=== PATIENT | male | born 1960 | race African-American/Black ===

== ENCOUNTER → 2016-10-27 | Outpatient (CLI) | payer BC, OTHER ==
--- NOTE | 2016-10-27 15:06 | NM ---
EXAMINATION TYPE: NM hepatobiliary w EF DATE OF EXAM: 10/27/2016 COMPARISON: NONE HISTORY: Generalized abdominal pain TECHNIQUE: After the intravenous administration of 5.1 mCi Tc 99m Mebrofenin hepatobiliary scintigrap hy is performed. Immediate images post injection. FINDINGS: There is satisfactory initial accumulation of tracer by the liver. The gallbladder is visualized wit hin 26 minutes. The small bowel activity is noted within 12 minutes. At one hour 8 ounces of oral e nsure plus is given to mimic CCK and gallbladder ejection fraction is calculated at 74 %, in the norm al range. Therefore there is no scintigraphic evidence of cystic or common bile duct obstruction to suggest acute cholecystitis or gallbladder dyskinesia. IMPRESSION: No evidence of acute cholecystitis, chronic cholecystitis, or biliary dyskinesia.
== END | disposition home or self-care (01) ==
LOC: RADNMMAIN 12:40
PROVIDERS: ATTEND Surgery
DX: R10.84 Generalized abdominal pain (principal); R13.10 Dysphagia, unspecified
CPT/HCPCS: 78226; A9537

== ENCOUNTER 2016-11-04 08:58 | Day surgery (SDC) | payer BC ==
[~2016-11-04 08:58] MED LIST: LACTATED RINGERS 1,000 ML IV SCH; LIDOCAINE 1% 20 ML VIAL (10MG/ML) FOR IV START INTRADERMA PRN
[2016-11-04 09:12] VITALS: TEMP 97.1
[2016-11-04] MEDS ORDERED: LIDOCAINE 1% INJ 10MG/ML (20 ML MDV) ONE (10:12)
[2016-11-04] MEDS ORDERED: PROPOFOL 10 MG/ML 20 ML VIAL IV ONE (10:12)
--- NOTE | 2016-11-04 10:17 | P.GSHP ---
History of Present Illness H&P Date: 11/04/16 Chief Complaint: Dysphagia, epigastric pain This a 56-year-old male who's has complaints of dysphagia and some mild epigastric pain. He presents today for EGD. His recent esophagram shows no evidence of GE junction obstruction or recurrent hiatal hernia. Past Medical History Past Medical History: No Reported History Additional Past Medical History / Comment(s): CURRENT: NO APPETITE, CAN ONLY EAT SMALL PORTIONS, SOME UPPER ABD PAIN History of Any Multi-Drug Resistant Organisms: None Reported Past Surgical History: Hernia Repair, Orthopedic Surgery Additional Past Surgical History / Comment(s): HIATAL HERNIA REPAIR,RIGHT ROTATOR CUFF REPAIR, URETER SURGERY, "stomach wrap" Past Anesthesia/Blood Transfusion Reactions: No Reported Reaction Past Psychological History: No Psychological Hx Reported Smoking Status: Light tobacco smoker Past Alcohol Use History: Occasional Additional Past Alcohol Use History / Comment(s): HAS SMOKED AN OCCASIONAL CIGAR FOR ABOUT 4 YRS-QUIT 2014 Past Drug Use History: None Reported - Past Family History Sister(s) Family Medical History: Cancer Additional Family Medical History / Comment(s): breast Brother(s) Family Medical History: Cancer Additional Family Medical History / Comment(s): throat cancer Mother Family Medical History: Cancer, Hypertension Additional Family Medical History / Comment(s): breast Medications and Allergies Home Medications Medication Instructions Recorded Confirmed Type No Known Home Medications [No 11/20/14 11/04/16 History Known Home Medications] Allergies Allergy/AdvReac Type Severity Reaction Status Date / Time No Known Allergies Allergy Verified 11/04/16 09:12 Surgical - Exam Vital Signs Temp Pulse Resp BP Pulse Ox 97.1 F L 46 L 16 140/92 99 11/04/16 09:09 11/04/16 09:09 11/04/16 09:09 11/04/16 09:09 11/04/16 09:09 - General well developed, no distress - Eyes PERRL - ENT normal pinna - Neck no masses - Respiratory normal expansion - Cardiovascular Rhythm: regular - Abdomen Abdomen: soft, non tender Assessment and Plan Plan: Dysphagia. We'll perform EGD.
--- NOTE | 2016-11-04 10:27 | P.OP ---
Date of Procedure: 11/04/16 Preoperative Diagnosis: Dysphagia Postoperative Diagnosis: Mild antral gastritis Procedure(s) Performed: EGD with balloon dilatation of GE junction Anesthesia: MAC Surgeon: Sanjay Jimenes Pathology: other (Antrum) Condition: stable Disposition: PACU Description of Procedure: The patient's placed on the endoscopy table lateral position. He received IV sedation. The gastric was placed oropharynx passed into the esophagus and stomach. Scope was then placed through the pylorus. The first second portion of the duodenum appeared normal. Scope was then brought back the antrum and this appeared mildly inflamed. A biopsies performed. The scope was then retroflexed and remainder some appeared normal. There is no evidence of a recurrent hiatal hernia. The GE junction appeared patent. Due to the patient' s symptoms dysphagia a 20 mm balloon was placed across the GE junction and held in position for 3 minutes. There isany injury to the stomach or esophagus. The scope was withdrawn. The distal esophagus appeared normal. Scope was withdrawn for patient.
[2016-11-04 11:03] VITALS: BP 151/88; PULSE 44; RESP 18
== END 2016-11-04 11:32 | disposition home or self-care (01) ==
LOC: ORWHC2ENDO 08:58
PROVIDERS: ATTEND Surgery
DX: R13.10 Dysphagia, unspecified (principal); K29.50 Unspecified chronic gastritis without bleeding; B96.81 Helicobacter pylori [H. pylori] as the cause of diseases classified elsewhere; Z87.891 Personal history of nicotine dependence; Z80.0 Family history of malignant neoplasm of digestive organs
CPT/HCPCS: 88305; 88342; 43239; 43249; J2001; J2704

== ENCOUNTER 2017-04-04 08:19 | Day surgery (SDC) | payer BC, OTHER ==
[2017-03-30 14:38] VITALS: BMI 22.5
[~2017-04-04 08:19] MED LIST changes: -LIDOCAINE 1% 20 ML VIAL (10MG/ML) FOR IV START INTRADERMA PRN
[2017-04-04 08:42] VITALS: RESP 16; TEMP 98
[2017-04-04] MEDS ORDERED: LIDOCAINE 1% 20 ML VIAL (10MG/ML) FOR IV START INTRADERMA ONE (08:51)
[2017-04-04] MEDS ORDERED: GLYCOPYRROLATE 0.2 MG/ML 2 ML VIAL ONE (09:06)
[2017-04-04] MEDS ORDERED: MIDAZOLAM 2 MG/2 ML VIAL ONE (09:06)
[2017-04-04] MEDS ORDERED: fentaNYL (PF) 50 MCG/ML 2 ML AMP ONE (09:06)
[2017-04-04] MEDS ORDERED: LIDOCAINE 1% INJ 10MG/ML (20 ML MDV) ONE (09:06)
[2017-04-04] MEDS ORDERED: PROPOFOL 10 MG/ML 20 ML VIAL IV ONE (09:06)
--- NOTE | 2017-04-04 09:16 | P.GSHP ---
History of Present Illness H&P Date: 04/04/17 Chief Complaint: Epigastric and left lower quadrant pain, colitis This a 57-year-old male who had a recent hospital admission for colitis and epigastric pain. He presents today for EGD for evaluation possible gastritis and colitis. Past Medical History Past Medical History: GERD/Reflux Additional Past Medical History / Comment(s): hx hiatal hernia, change in bowel movements, recent colitis History of Any Multi-Drug Resistant Organisms: None Reported Past Surgical History: Hernia Repair, Orthopedic Surgery Additional Past Surgical History / Comment(s): HIATAL HERNIA REPAIR, RIGHT ROTATOR CUFF REPAIR, URETER SURGERY, Past Anesthesia/Blood Transfusion Reactions: No Reported Reaction Past Psychological History: No Psychological Hx Reported Smoking Status: Light tobacco smoker Past Alcohol Use History: Occasional Additional Past Alcohol Use History / Comment(s): smokes OCCASIONAL CIGARS Past Drug Use History: None Reported - Past Family History Sister(s) Family Medical History: Cancer Additional Family Medical History / Comment(s): breast Brother(s) Family Medical History: Cancer Additional Family Medical History / Comment(s): throat cancer Mother Family Medical History: Cancer, Hypertension Additional Family Medical History / Comment(s): breast Medications and Allergies Home Medications Medication Instructions Recorded Confirmed Type No Known Home Medications [No 11/20/14 04/04/17 History Known Home Medications] Allergies Allergy/AdvReac Type Severity Reaction Status Date / Time No Known Allergies Allergy Verified 04/04/17 08:41 Surgical - Exam Vital Signs Temp Pulse Resp BP Pulse Ox 98.0 F 54 L 16 155/80 100 04/04/17 08:37 04/04/17 08:37 04/04/17 08:37 04/04/17 08:37 04/04/17 08:37 - General well developed, no distress - Eyes PERRL - ENT normal pinna - Neck no masses - Respiratory normal expansion - Cardiovascular Rhythm: regular - Abdomen Abdomen: soft, non tender Assessment and Plan Assessment: History of colitis and gastritis. We'll perform EGD and colonoscopy.
--- NOTE | 2017-04-04 09:41 | P.OP ---
Date of Procedure: 04/04/17 Preoperative Diagnosis: Gastritis Colitis Constipation Postoperative Diagnosis: Antral gastritis Normal colon biopsy pending Procedure(s) Performed: EGD Colonoscopy Anesthesia: MAC Surgeon: Sanjay Jimenes Pathology: other (Antrum, sigmoid colon) Condition: stable Disposition: PACU Description of Procedure: The patient's placed on the endoscopy table in the lateral position. He received IV sedation. The gastroscope placed oropharynx passed in the esophagus and stomach. Scope was then placed through the pylorus. The first and second portion of the duodenum appeared normal. Scope was then brought back the antrum this appeared mildly inflamed and a biopsy was performed. The scope was unretroflexed and remainder some appeared normal. The patient a previous fundal plication. The GE junction was at 47 is. The distal esophagus appeared normal. The proximal esophagus appeared normal. Scope was withdrawn for patient. Next digital rectal exam was performed which revealed a few external hemorrhoids. The prostate was symmetric without nodules. The flexible colonoscope was then placed patient anus passed throughout the entire colon. The ileocecal valve was visualized. The cecum, ascending and transverse colon appeared normal. The descending; appeared normal. Due to the patient's use history of colitis. A random biopsy of the sigmoid colon was performed. This appeared normal. Scope summer back the rectum and this appeared normal. Scope was withdrawn for patient.
[2017-04-04 10:04] VITALS: BP 134/88; PULSE 66
== END 2017-04-04 10:43 | disposition home or self-care (01) ==
LOC: ORWHC2ENDO 08:19
PROVIDERS: ATTEND Surgery
DX: K29.50 Unspecified chronic gastritis without bleeding (principal); K21.9 Gastro-esophageal reflux disease without esophagitis; K44.9 Diaphragmatic hernia without obstruction or gangrene; K64.4 Residual hemorrhoidal skin tags; K52.9 Noninfective gastroenteritis and colitis, unspecified; Z80.0 Family history of malignant neoplasm of digestive organs; F17.290 Nicotine dependence, other tobacco product, uncomplicated
CPT/HCPCS: 88305; 45380; 43239; J2250; J2001; J3010; J2704

== ENCOUNTER → 2018-12-21 | Outpatient (CLI) | payer BC ==
--- NOTE | 2018-12-21 12:27 | NM ---
EXAMINATION TYPE: NM bone 3 phase DATE OF EXAM: 12/21/2018 COMPARISON: NONE HISTORY: Right lower extremity cellulitis. Injury to the second and third toe of the right foot appro ximately 3 weeks ago Triple phase bone scintigraphy was performed following the injection of 23.2 mCi Tc 99m MDP. Immedia te images and 4 hours post injection images acquired. FINDINGS: There is abnormal flow and blood pool to the third right digit focally however this does no t appear to persist on delayed images. Mild symmetric uptake in the mid feet bilaterally, likely dege nerative. IMPRESSION: Findings of cellulitis seen focally over the third right digit. No scintigraphic evidence of osteomyelitis with no persistent uptake on delayed images..
== END | disposition home or self-care (01) ==
LOC: RADNMMAIN 07:10
PROVIDERS: ATTEND Family Medicine
DX: L03.115 Cellulitis of right lower limb (principal)
CPT/HCPCS: 78315; A9503

== ENCOUNTER → 2019-07-16 | Outpatient (CLI) | payer BC ==
--- NOTE | 2019-07-16 14:04 | CT ---
EXAMINATION TYPE: CT brain w con DATE OF EXAM: 07/16/2019 COMPARISON: None HISTORY: Vision changes CT DLP: 1109 mGycm Automated exposure control for dose reduction was used. CONTRAST: CT scan of the head is performed with IV Contrast, patient injected with 100 ml mL of Isovue 300. FINDINGS: There is no abnormal enhancing mass or midline shift identified. The ventricles and sulci are within normal limits in size. The globes are intact and the visualized sinuses are clear. No enhancing mas ses. Several densities are seen in the subcutaneous tissues which could represent chronic foreign bod y. Correlate clinically. There is a punctate area of enhancement near the medulla. Measures 2 mm. IMPRESSION: Punctate 2 mm area of enhancement near the medulla. MRI is recommended to determine if this is a vasc ular structure or tiny enhancing lesion.
== END | disposition home or self-care (01) ==
LOC: RADCTMAIN 13:15
PROVIDERS: ATTEND Family Medicine
DX: H53.9 Unspecified visual disturbance (principal); R51 Headache
CPT/HCPCS: 70460; Q9967

== ENCOUNTER → 2019-08-07 | Outpatient (CLI) | payer BC ==
--- NOTE | 2019-08-08 03:39 | MR ---
EXAMINATION TYPE: MR brain wo/w con DATE OF EXAM: 08/07/2019 COMPARISON: CT scan 07/26/2019. HISTORY: Visual Changes, CT showed abnormality. CONTRAST: Standard multiplanar, multisequence MRI departmental protocol utilizing 7 mL intravenous Gadavist george olinium contrast. Ventricles have normal size. There is no mass effect nor midline shift. There is no sign of intracran ial hemorrhage. Corpus callosum appears normal. Brainstem is intact. Sella turcica appears normal. Th ere is no evidence of cerebral edema. Diffusion images show no evidence of cortical infarct. There is normal contrast enhancement of the vertebrobasilar artery system and the anterior middle and posterior cerebral arteries. I see no pathologic enhancement. There is normal enhancement of the maury ous sinuses. Optic chiasm is normal. Pituitary gland appears normal. There is no evidence of an orbital mass. There is no pathologic orbital enhancement. The globes are s ymmetric. IMPRESSION: Negative MR scan of the brain. No pathologic enhancement. I do not see a cause for vision changes. No adverse change compared to recent CT scan.
== END | disposition home or self-care (01) ==
LOC: RADMRIMAIN 15:50
PROVIDERS: ATTEND Family Medicine
DX: R51 Headache (principal); H53.9 Unspecified visual disturbance
CPT/HCPCS: 70553; A9585

== ENCOUNTER 2019-10-11 11:10 | Day surgery (SDC) | payer BC ==
[2019-10-09 15:14] VITALS: BMI 22.0
[~2019-10-11 11:10] MED LIST changes: +LIDOCAINE 1% (10MG/ML) FOR IV START INTRADERMA PRN
[2019-10-11 11:26] VITALS: RESP 16; TEMP 98.2
[2019-10-11] MEDS ORDERED: PROPOFOL 10 MG/ML 20 ML VIAL IV ONE (11:48)
[2019-10-11] MEDS ORDERED: GLYCOPYRROLATE 0.2 MG/ML 2 ML VIAL ONE (11:48)
[2019-10-11] MEDS ORDERED: MIDAZOLAM 2 MG/2 ML VIAL ONE (11:48)
[2019-10-11] MEDS ORDERED: LIDOCAINE 1% INJ 10MG/ML (20 ML MDV) ONE (11:48)
--- NOTE | 2019-10-11 11:50 | P.GSHP ---
History of Present Illness H&P Date: 10/11/19 Chief Complaint: Peptic ulcer disease, rectal bleeding This a 59-year-old male presents today for EGD and colonoscopy. Patient has had complaints of rectal bleeding. History of peptic ulcer disease. Past Medical History Past Medical History: GERD/Reflux Additional Past Medical History / Comment(s): change in bowel movements, recent colitis, BLOOD IN STOOL History of Any Multi-Drug Resistant Organisms: None Reported Past Surgical History: Bariatric Surgery, Hernia Repair, Orthopedic Surgery Additional Past Surgical History / Comment(s): HIATAL HERNIA REPAIR, RIGHT ROTATOR CUFF REPAIR, URETER SURGERY, LAP BAND- Past Anesthesia/Blood Transfusion Reactions: No Reported Reaction Smoking Status: Current some day smoker - Past Family History Sister(s) Family Medical History: Cancer Additional Family Medical History / Comment(s): breast Brother(s) Family Medical History: Cancer Additional Family Medical History / Comment(s): throat cancer Mother Family Medical History: Cancer, Hypertension Additional Family Medical History / Comment(s): breast Medications and Allergies Home Medications Medication Instructions Recorded Confirmed Type Allergy Relief 1 tab PO DAILY 10/11/19 10/11/19 History Centrum Chewable Vitamins 2 tab PO DAILY 10/11/19 10/11/19 History Cyclobenzaprine [Flexeril] 1 tab PO HS 10/11/19 10/11/19 History Escitalopram [Lexapro] 10 mg PO DAILY 10/11/19 10/11/19 History Famotidine [Pepcid] 20 mg PO DAILY 10/11/19 10/11/19 History Allergies Allergy/AdvReac Type Severity Reaction Status Date / Time No Known Allergies Allergy Verified 10/11/19 11:27 Surgical - Exam Vital Signs Temp Pulse Resp BP Pulse Ox 98.2 F 50 L 16 161/95 100 10/11/19 11:21 10/11/19 11:21 10/11/19 11:21 10/11/19 11:21 10/11/19 11:21 - General well developed, well nourished, no distress - Eyes PERRL - ENT normal pinna - Neck no masses - Respiratory normal expansion - Cardiovascular Rhythm: regular - Abdomen Abdomen: soft, non tender Assessment and Plan Assessment: Rectal bleeding, peptic ulcer disease. We'll perform EGD colonoscopy
--- NOTE | 2019-10-11 12:13 | P.OP ---
Date of Procedure: 10/11/19 Preoperative Diagnosis: Dyspepsia Rectal bleeding Postoperative Diagnosis: Internal hemorrhoids Antral gastritis Procedure(s) Performed: EGD Colonoscopy Anesthesia: MAC Surgeon: Sanjay Jimenes Pathology: other (Antrum) Condition: stable Disposition: PACU Description of Procedure: The patient's placed on the endoscopy table in the lateral position. She received IV sedation. The gastroscope placed oropharynx passed in the esophagus into the stomach. Scope then placed through the pylorus. First and second portion duodenum appeared normal. Scope was then brought back the antrum and this appeared mildly inflamed. A biopsies performed. Scope was unretroflexed and the remainder of the stomach appeared normal. The patient had a previous Timmy fundal plication. The wrap appeared to be in appropriate position. The GE junction was at 40 cm. The distal esophagus appeared normal. The proximal esophagus. Normal. Scope was withdrawn for patient. Next digital rectal exam was performed in a few internal hemorrhoids were noted. The prostate was symmetric without nodules. The possible colonoscope was then placed patient anus and passed throughout the entire colon. The ileocecal valve was visualized. The cecum, ascending and transverse colon appeared normal. The descending and sigmoid colon appeared normal. Scope was then brought back the rectum and this appeared normal. Scope was then withdrawn from patient. Internal hemorrhoids are noted. There is no evidence of any GI bleed. Assume that any rectal bleeding is due to internal hemorrhoids
[2019-10-11 12:33] VITALS: BP 137/98; PULSE 54
== END 2019-10-11 12:56 | disposition home or self-care (01) ==
LOC: ORWHC2ENDO 11:10
PROVIDERS: ATTEND Surgery
DX: K64.8 Other hemorrhoids (principal); K29.51 Unspecified chronic gastritis with bleeding; K31.89 Other diseases of stomach and duodenum; K21.9 Gastro-esophageal reflux disease without esophagitis; F17.200 Nicotine dependence, unspecified, uncomplicated; Z87.11 Personal history of peptic ulcer disease; Z87.19 Personal history of other diseases of the digestive system; Z98.84 Bariatric surgery status; Z98.890 Other specified postprocedural states; Z87.39 Personal history of other diseases of the musculoskeletal system and connective tissue; Z79.899 Other long term (current) drug therapy; Z80.3 Family history of malignant neoplasm of breast; Z80.8 Family history of malignant neoplasm of other organs or systems; Z82.49 Family history of ischemic heart disease and other diseases of the circulatory system
CPT/HCPCS: 88305; 45378; 43239; J2250; J2001; J2704

== ENCOUNTER 2021-09-11 16:45 | Emergency (ER) | payer BC ==
[2021-09-11] MEDS ORDERED: SODIUM CHLORIDE 0.9% 1,000 ML IV STA (17:27)
[2021-09-11 17:49] VITALS: PULSE 56
[2021-09-11] MEDS ORDERED: ACETAMINOPHEN TAB 500 MG TAB PO STA (17:49)
[2021-09-11 18:10] LABS: Basophils % (A) 1 %; Eosinophils # (A) 0.2 k/uL (0-0.7); Eosinophils % (A) 3 %; HCT 38.4 % (39.0-53.0); HGB 12.6 gm/dL (13.0-17.5); Lymphocytes % (A) 16 %; MCH 32.8 pg (25.0-35.0); MCHC 32.8 g/dL (31.0-37.0); MCV 99.7 fL (80.0-100.0); Mean Platelet Volume 8.3; Monocytes # (A) 0.3 k/uL (0-1.0); Monocytes % (A) 5 %; Neutrophils # (A) 4.5 k/uL (1.3-7.7); Neutrophils % (A) 75 %; Platelet Count 167 k/uL (150-450); RBC 3.85 m/uL (4.30-5.90); RDW 12.3 % (11.5-15.5)
[2021-09-11 18:22] LABS: ALT 26 U/L (4-49); AST 26 U/L (17-59); African American GFR (CKD) >90 (>60 ml/min/1.73 sqM); Albumin 4.2 g/dL (3.5-5.0); Alkaline Phosphatase 64 U/L (38-126); Anion Gap 5 mmol/L; Blood Urea Nitrogen 19 mg/dL (9-20); Calcium 9.1 mg/dL (8.4-10.2); Carbon Dioxide 30 mmol/L (22-30); Chloride 103 mmol/L (98-107); Glucose 83 mg/dL (74-99); Magnesium 1.9 mg/dL (1.6-2.3); Non-African American GFR(CKD) 82 (>60 ml/min/1.73 sqM); Potassium 4.3 mmol/L (3.5-5.1); Sodium 138 mmol/L (137-145); Total Bilirubin 0.5 mg/dL (0.2-1.3); Total Protein 6.9 g/dL (6.3-8.2)
[2021-09-11 18:24] LABS: Prothrombin Time 10.7 sec (9.0-12.0)
[2021-09-11 18:28] LABS: Partial Thromboplastin Time 17.8 sec (22.0-30.0)
--- NOTE | 2021-09-11 18:52 | CT ---
EXAMINATION TYPE: CT brain wo con DATE OF EXAM: 09/11/2021 COMPARISON: 07/16/2019 HISTORY: syncope, headache CT DLP: 1139.4 mGycm Automated exposure control for dose reduction was used. Images of the brain obtained with no contrast. Ventricles and sulci appear normal. There is no mass effect or midline shift. No sign of intracranial hemorrhage. Calvarium is intact. Skull base is intact. There is normal aeration of the mastoid sinus es. IMPRESSION: Negative CT scan of the brain. No adverse change.
--- NOTE | 2021-09-11 18:52 | ED ---
General Adult HPI - General Chief complaint: Syncope Stated complaint: SYNCOPE Time Seen by Provider: 09/11/21 17:11 Source: patient, EMS Mode of arrival: EMS Limitations: no limitations - History of Present Illness Initial comments: Patient is a 61-year-old male who presents after syncopal episode. Patient's is at bedside and helps provide history. Patient states he was out in 90 weather today working on his roof and in his garage after eating very little this morning. Patient did not eat throughout the day. He then went to a wedding did not consume water. Patient drank 3 or 4 beers. Prior to the waiting starting patient was sitting at the pew and felt lightheaded and started to sweat. He then had a syncopal episode which lasted for about 1 minute. Patient was guided down to laying position gently. He did not his head. denies seizure-like activity. Patient states he feels tired now. He denies double vision, blurry vision, lightheadedness, dizziness, upper respiratory symptoms, shortness of breath, chest pain, palpitations, abdominal pain, nausea, vomiting, diarrhea. Patient does have a mild headache. States he rebollar been following with his primary care provider regarding intermittent headaches for the past couple months. The headache is always in the back of his head and ranges in severity, sometimes associated with blurry vision. Patient denies history of migraines. Denies issues with balance and walking. Patient states he starts physical therapy on Monday as his primary care provider feels that his headaches may be related to shoulder issues. Patient has history of right rotator cuff surgery. Denies history of arrhythmia and other cardiac disease. Denies family history of structural heart disease. - Related Data Home Medications Medication Instructions Recorded Confirmed Famotidine [Pepcid] 20 mg PO BID 10/11/19 09/11/21 Betamethasone Dipropionate 1 applic TOPICAL BID 09/11/21 09/11/21 [Betamethasone Dipropionate 0.05%] Escitalopram [Lexapro] 5 mg PO DAILY 09/11/21 09/11/21 Tamsulosin [Flomax] 0.4 mg PO DAILY 09/11/21 09/11/21 Allergies Allergy/AdvReac Type Severity Reaction Status Date / Time No Known Allergies Allergy Verified 09/11/21 17:56 Review of Systems ROS Statement: Those systems with pertinent positive or pertinent negative responses have been documented in the HPI. ROS Other: All systems not noted in ROS Statement are negative. Past Medical History Past Medical History: GERD/Reflux Additional Past Medical History / Comment(s): change in bowel movements, recent colitis, BLOOD IN STOOL, enlarged prostate History of Any Multi-Drug Resistant Organisms: None Reported Past Surgical History: Bariatric Surgery, Hernia Repair, Orthopedic Surgery Additional Past Surgical History / Comment(s): HIATAL HERNIA REPAIR, RIGHT ROTATOR CUFF REPAIR, URETER SURGERY, LAP BAND- Past Anesthesia/Blood Transfusion Reactions: No Reported Reaction Past Psychological History: No Psychological Hx Reported Smoking Status: Current some day smoker Past Alcohol Use History: Occasional Past Drug Use History: None Reported - Past Family History Sister(s) Family Medical History: Cancer Additional Family Medical History / Comment(s): breast Brother(s) Family Medical History: Cancer Additional Family Medical History / Comment(s): throat cancer Mother Family Medical History: Cancer, Hypertension Additional Family Medical History / Comment(s): breast General Exam Limitations: no limitations General appearance: alert, in no apparent distress Head exam: Present: atraumatic, normocephalic, normal inspection Eye exam: Present: normal appearance, PERRL, EOMI. Absent: scleral icterus, conjunctival injection, periorbital swelling ENT exam: Present: normal oropharynx. Absent: mucous membranes moist Neck exam: Present: normal inspection, full ROM. Absent: tenderness, meningismus, lymphadenopathy Respiratory exam: Present: normal lung sounds bilaterally. Absent: respiratory distress, wheezes, rales, rhonchi, stridor Cardiovascular Exam: Present: normal rhythm, bradycardia, normal heart sounds. Absent: regular rate, systolic murmur, diastolic murmur, rubs, gallop, clicks GI/Abdominal exam: Present: soft, normal bowel sounds. Absent: distended, tenderness, guarding, rebound, rigid Neurological exam: Present: alert, oriented X3, CN II-XII intact Expanded Cranial nerves: EOM's Intact: Normal, Tongue Deviation: Normal, Nystagmus: Normal, Facial Sensation: Normal, Facial Palsy with Forehead Movement: Normal, Facial Palsy without Forehead Movement: Normal Cerebellar function: Finger to Nose: Normal, Heel to Muir: Normal, Romberg: Normal Upper motor neuron: Robert Neglect: Normal, Pronator Drift: Normal Sensory exam: Upper Extremity Light Touch: Normal, Lower Extremity Light Touch: Normal Motor strength exam: RUE: 5, LUE: 5, RLE: 5, LLE: 5 Psychiatric exam: Present: normal affect, normal mood Skin exam: Present: warm, dry, intact, normal color. Absent: rash Course Vital Signs 09/11/21 09/11/21 09/11/21 16:59 17:48 19:36 Pulse Rate 55 L 56 L Pulse Rate [ 56 L Sitting] Pulse Rate [ 65 Standing] Pulse Rate [ 56 L Supine] Respiratory 16 16 15 Rate Blood Pressure 122/82 123/85 Blood Pressure 137/93 [Sitting] Blood Pressure 122/98 [Standing] Blood Pressure 120/81 [Supine] O2 Sat by Pulse 100 99 100 Oximetry EKG Findings - EKG Comments: EKG Findings:: EKG taken at 17:08. Sinus bradycardia, no ST segment elevation or depression. Ventricular rate 55. NM interval 158. QRS duration 87. QTc 422 Medical Decision Making - Medical Decision Making This is a 61-year-old male who presents after syncopal episode. Patient is well-appearing and in no apparent distress. Vitals stable. Mucous membranes are dry. EKG shows sinus bradycardia without ST segment elevation or depression.. Ventricular rate is 55 which is not unusual for patient. Laboratory studies obtained. Hemoglobin is slightly low at 12.6, no previous for comparison. Electrolytes are within normal limits. Troponin is within normal limits. Chest x-ray is negative for acute process. Due to consistent headaches I did obtain a CT of the brain without contrast which is unremarkable. Orthostatics negative. Patient received large fluid bolus in the emergency department. Patient continued to feel well during his emergency stay. Vitals remained stable. Syncope likely related to orthostatic hypotension as patient is dehydrated and has been in high temperatures outside for a long period of time today. Results discussed with patient. Precipitating factors of syncope discussed in detail. Patient to return if he experiences new, worsening, or concerning symptoms. Dr. Campbell is my attending. - Lab Data Result diagrams: 09/11/21 17:39 09/11/21 17:39 Lab Results 09/11/21 09/11/21 09/11/21 Range/Units 17:39 17:39 17:39 WBC 6.0 (3.8-10.6) k/uL RBC 3.85 L (4.30-5.90) m/uL Hgb 12.6 L (13.0-17.5) gm/dL Hct 38.4 L (39.0-53.0) % MCV 99.7 (80.0-100.0) fL MCH 32.8 (25.0-35.0) pg MCHC 32.8 (31.0-37.0) g/dL RDW 12.3 (11.5-15.5) % Plt Count 167 (150-450) k/uL MPV 8.3 Neutrophils % 75 % Lymphocytes % 16 % Monocytes % 5 % Eosinophils % 3 % Basophils % 1 % Neutrophils # 4.5 (1.3-7.7) k/uL Lymphocytes # 1.0 (1.0-4.8) k/uL Monocytes # 0.3 (0-1.0) k/uL Eosinophils # 0.2 (0-0.7) k/uL Basophils # 0.0 (0-0.2) k/uL PT 10.7 (9.0-12.0) sec INR 1.0 (<1.2) APTT 17.8 L (22.0-30.0) sec Sodium 138 (137-145) mmol/L Potassium 4.3 (3.5-5.1) mmol/L Chloride 103 (98-107) mmol/L Carbon Dioxide 30 (22-30) mmol/L Anion Gap 5 mmol/L BUN 19 (9-20) mg/dL Creatinine 1.00 (0.66-1.25) mg/dL Est GFR (CKD-EPI)AfAm >90 (>60 ml/min/1.73 sqM) Est GFR (CKD-EPI)NonAf 82 (>60 ml/min/1.73 sqM) Glucose 83 (74-99) mg/dL Calcium 9.1 (8.4-10.2) mg/dL Magnesium 1.9 (1.6-2.3) mg/dL Total Bilirubin 0.5 (0.2-1.3) mg/dL AST 26 (17-59) U/L ALT 26 (4-49) U/L Alkaline Phosphatase 64 (38-126) U/L Troponin I (0.000-0.034) ng/mL Total Protein 6.9 (6.3-8.2) g/dL Albumin 4.2 (3.5-5.0) g/dL 09/11/21 Range/Units 17:39 WBC (3.8-10.6) k/uL RBC (4.30-5.90) m/uL Hgb (13.0-17.5) gm/dL Hct (39.0-53.0) % MCV (80.0-100.0) fL MCH (25.0-35.0) pg MCHC (31.0-37.0) g/dL RDW (11.5-15.5) % Plt Count (150-450) k/uL MPV Neutrophils % % Lymphocytes % % Monocytes % % Eosinophils % % Basophils % % Neutrophils # (1.3-7.7) k/uL Lymphocytes # (1.0-4.8) k/uL Monocytes # (0-1.0) k/uL Eosinophils # (0-0.7) k/uL Basophils # (0-0.2) k/uL PT (9.0-12.0) sec INR (<1.2) APTT (22.0-30.0) sec Sodium (137-145) mmol/L Potassium (3.5-5.1) mmol/L Chloride (98-107) mmol/L Carbon Dioxide (22-30) mmol/L Anion Gap mmol/L BUN (9-20) mg/dL Creatinine (0.66-1.25) mg/dL Est GFR (CKD-EPI)AfAm (>60 ml/min/1.73 sqM) Est GFR (CKD-EPI)NonAf (>60 ml/min/1.73 sqM) Glucose (74-99) mg/dL Calcium (8.4-10.2) mg/dL Magnesium (1.6-2.3) mg/dL Total Bilirubin (0.2-1.3) mg/dL AST (17-59) U/L ALT (4-49) U/L Alkaline Phosphatase (38-126) U/L Troponin I <0.012 (0.000-0.034) ng/mL Total Protein (6.3-8.2) g/dL Albumin (3.5-5.0) g/dL Disposition Clinical Impression: Orthostatic syncope, Headache Disposition: HOME SELF-CARE Condition: Good Instructions (If sedation given, give patient instructions): Syncope (ED) Additional Instructions: Please increase water intake significantly. Avoid long periods of heat exposure, especially while drinking alcohol, during exertion, and long periods of standing. Follow-up with primary care provider in one to 2 days. Return to the emergency department if you experience new, concerning, or worsening sy mptoms. Is patient prescribed a controlled substance at d/c from ED?: No Referrals: Latrice Jackson DO [Primary Care Provider] - 1-2 days Time of Disposition: 19:44
--- NOTE | 2021-09-11 18:56 | XR ---
EXAMINATION TYPE: XR chest 2V DATE OF EXAM: 09/11/2021 COMPARISON: NONE HISTORY: Syncope TECHNIQUE: 2 views FINDINGS: Heart and mediastinum are normal. Lungs are clear. Diaphragm is normal. Bony thorax is intact. There is right shoulder surgery noted. There are chest leads. IMPRESSION: No cardiopulmonary disease.
[2021-09-11 19:39] VITALS: BP 120/81; RESP 15
[2021-09-11 20:16] VITALS: TEMP 97.8
== END 2021-09-11 20:15 | disposition home or self-care (01) ==
LOC: EC 16:45
DX: R55 Syncope and collapse (principal); R51.9 Headache, unspecified; F17.200 Nicotine dependence, unspecified, uncomplicated; K21.9 Gastro-esophageal reflux disease without esophagitis; Z79.899 Other long term (current) drug therapy
CPT/HCPCS: 36415; 70450; 71046; 80053; 83735; 84484; 85025; 85610; 85730; 93005; 96360; 96361; 99284

== ENCOUNTER → 2022-01-24 | Outpatient (CLI) | payer BC ==
[2022-01-24 08:48] VITALS: BP 139/85; PULSE 62; RESP 18; TEMP 97.9
--- NOTE | 2022-01-24 14:58 | P.PAINPG ---
PQRS Measure Charge Sheet Comment: HISTORY OF PRESENT ILLNESS: 61 yr old male with at side as a referral from Dr Latrice Jackson presents today w severe and chronic CARRIZALES secondary to cervicogenic CARRIZALES for evaluation. Pt states pain level is at 7 /10 in intensity, constant, localized in the L base of head, tight/ pressure in character w shooting pain towards the L scalp. Pain is provoked by lifting, rotation, hyperextension. Pain is alleviated by medications (Lyrica, Aleve), THC products, injections in the past, heat, PT integrated with massage 6 weeks in September 2021, repositioning, laying supine and rest. PMH: GERD PSH: LapBand Bariatric Surgery, Hiatal Hernia Repair, R RCT Surgery, Colonoscopy (2019), Ureter Surgery SH: Ddaily tobacco use, No ETOH abuse, No illicit drug use. FH: Mo- Breast CA/ CAD. Sis- Breast CA. Bro- Esophageal CA. All: NKDA Meds: See list REVIEW OF ORGAN SYSTEMS: CONSTITUTIONAL: No fevers or chills. No recent weight loss. NEUROLOGICAL: + numbness and tingling along the distal extremities. No seizure disorders or headaches. MUSCULOSKELETAL: + pain PSYCHIATRIC: Denies current depression or suicidal thoughts. Physical Examinations : Constitutional : Cooperative , not in acute distress . Neurologic : Cranial nerve II to XII intact. No focal neurological deficits. Psychiatric : alert & oriented x 3. Matching mood & appropriate affect. Judgment & insight intact. Musculoskeletal : Cervical Spine Motor strength in the deltoid and biceps: Normal right side. Normal Left side Motor strength biceps and the wrist extensors: Normal right side . Normal left side Motor strength in the triceps muscle: Normal right side. Normal left side Deep tendon reflexes: Normal at the biceps. Normal at Brachioradialis. Normal at triceps Vertebral body tenderness to deep palpation over Cervical facet loading test: positive over L C2-C3, C3-C4 Spurling test: positive bilaterally Neck distraction test: positive bilaterally Frank sign: positive bilaterally Lumbar spine Motor strength lower extremities ,thigh and legs 5/5 Right side , 5/5 Left side Deep tendon reflexes : Normal Knee Jerk. Normal Ankle Jerk Vertebral body tenderness over Lumbar facet Loading Test: positive Right / positive Left Range of motion of the lumbar spine Flexion 30 degrees, extension 10 degrees Straight Leg Raise test: Left/ Right positive at degree Jay test: positive right / positive left. Severe tenderness over the Sacroiliac joint on the Right / Left sides Gaenslen test: positive bilaterally Seated flexion test: positive bilaterally. Sacral spine : Severe tenderness over the Sacroiliac joint: right side / left side Range of motion: Flexion of the lumbar spine <60 degrees Range of motion: Extension of the lumbar spine <20 degrees Gaenslen's Test positive Porfirio's Test positive Jay test: positive right side / le ft side Thigh Thrust Test Sacral Thrust Test Imaging: MRI without contrast of the cervical spine from 12/18/21 reviewed Assessment/ Plan : Neck pain, headache secondary to occipital neuralgia, cervicogenic headache Recommendation of L facet blocks of the medial branches C2 to C3, C3-C4 #1. May need a series of injections, up until RFA, for optimal pain relief. Risks, benefits of procedure discussed and patient verbalized understanding. Admits to aspirin or anti- coagulant use or medical history of diabetes. Protocol for discontinuation/ continuation of medications mustapha procedure discussed. All questions answered. I have spent greater than 30 minutes on patient care today. Dr Munson was available by phone for the evaluation of this patient. The time was used to review the medical records including relevant urine studies and Prescription history (MAPs), review of the available imaging, evaluation and examination of the patient, coordination of care with the medical staff and if applicable referring physicians, as well as creation of the medical record PQRS Narrative: Smoking Status Light tobacco smoker Home Medications: Ambulatory Orders Famotidine [Pepcid] 20 mg PO BID 10/11/19 Betamethasone Dipropionate [Betamethasone Dipropionate 0.05%] 1 applic TOPICAL BID 09/11/21 Escitalopram [Lexapro] 5 mg PO DAILY 09/11/21 Tamsulosin [Flomax] 0.4 mg PO DAILY 09/11/21 Controlled Substance Measures - Controlled Substance Measures Is patient prescribed a controlled substance at discharge?: No
== END ==
LOC: PNWHC3 07:41
PROVIDERS: ATTEND Specialist
DX: M54.81 Occipital neuralgia (principal); K21.9 Gastro-esophageal reflux disease without esophagitis; F17.200 Nicotine dependence, unspecified, uncomplicated
CPT/HCPCS: 99211

== ENCOUNTER → 2022-05-24 | Outpatient (CLI) | payer BC ==
--- NOTE | 2022-05-25 16:34 | MR ---
EXAMINATION TYPE: MR angio head wo con DATE OF EXAM: 05/24/2022 8:31 PM CLINICAL INDICATION:Male, 62 years old with history of R51.9 M54.2 R42 R26.89; Migraines, Occasional Memory loss/forgetfulness COMPARISON: MR brain 08/08/2019 Technical: 3-D [id number] Axial with MIP reconstruction created on a separate workstation.. IV Contrast: None Findings: Vertebral arteries: The vertebral arteries are patent. The vertebral arteries are codominant. Basilar artery: The basilar artery is intact. The basilar artery bifurcation is normal. Internal Carotid arteries: The cervical, petrous, cavernous and supraclinoid segments are normal. BENITO: Patent with no evidence of aneurysm. ACOM: Present without evidence of aneurysm. MCA: Patent with no evidence of aneurysm. MARITIME PILOT: Patent with no evidence of aneurysm. 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 IMPRESSION: No evidence of aneurysm or significant stenosis.
== END | disposition home or self-care (01) ==
LOC: RADMRIMAIN 20:15
PROVIDERS: ATTEND Physician Assistant
DX: G43.909 Migraine, unspecified, not intractable, without status migrainosus (principal); M54.2 Cervicalgia; R42 Dizziness and giddiness; R26.89 Other abnormalities of gait and mobility
CPT/HCPCS: 70544

== ENCOUNTER 2022-06-14 07:08 | Emergency (ER) | payer BC ==
[2022-06-14 07:13] VITALS: RESP 18
[2022-06-14] MEDS ORDERED: SODIUM CHLORIDE 0.9% 1,000 ML IV STA ×2 (07:31→08:51)
[2022-06-14] MEDS ORDERED: diphenhydrAMINE 50 MG/ML 1 ML VIAL IVP STA (07:31)
[2022-06-14] MEDS ORDERED: METOCLOPRAMIDE 5 MG/ML 2 ML VIAL IVP STA (07:31)
[2022-06-14] MEDS ORDERED: KETOROLAC 15 MG/ML 1 ML VIAL IVP STA (07:31)
--- NOTE | 2022-06-14 07:39 | ED ---
Headache HPI - General Chief Complaint: Headache Stated Complaint: headache Time Seen by Provider: 06/14/22 07:22 Source: patient, family (Spouse spouse), RN notes reviewed Mode of arrival: ambulatory Limitations: no limitations - History of Present Illness Initial Comments: Patient is a 62-year-old -Tong[place] male presenting to the emergency room with complaints of headache ongoing intermittently for approximately one month with increase in intensity and duration recently. He is following with primary care provider and recently referred to neurologist regarding his symptoms. He is previous CT of the head and MRA. also reports he had spinal tap that was completed at [facility]. No concern for meningeal symptoms. He denies any focal neurological deficits, weakness, dizziness, visual impairment, nausea, vomiting, fevers or chills. He reports bending over does make his headache worse at times and is unable to identify any alleviating factors. In addition to his headache history he has a past medical history significant for GERD and BPH. - Related Data Home Medications Medication Instructions Recorded Confirmed Famotidine [Pepcid] 20 mg PO BID 10/11/19 05/27/22 Escitalopram [Lexapro] 5 mg PO DAILY 09/11/21 05/27/22 Tamsulosin [Flomax] 0.4 mg PO DAILY 09/11/21 05/27/22 Cyclobenzaprine [Flexeril] 10 mg PO BID 05/27/22 05/27/22 Allergies Allergy/AdvReac Type Severity Reaction Status Date / Time diazepam [From Valium] Allergy Rash/Hives Verified 06/14/22 07:13 Review of Systems ROS Statement: Those systems with pertinent positive or pertinent negative responses have been documented in the HPI. ROS Other: All systems not noted in ROS Statement are negative. Past Medical History Past Medical History: GERD/Reflux Additional Past Medical History / Comment(s): change in bowel movements, recent colitis, BLOOD IN STOOL, enlarged prostate History of Any Multi-Drug Resistant Organisms: None Reported Past Surgical History: Bariatric Surgery, Hernia Repair, Orthopedic Surgery Additional Past Surgical History / Comment(s): HIATAL HERNIA REPAIR, RIGHT ROTATOR CUFF REPAIR, URETER SURGERY, LAP BAND- Past Anesthesia/Blood Transfusion Reactions: No Reported Reaction Past Psychological History: No Psychological Hx Reported Smoking Status: Current some day smoker Past Alcohol Use History: Occasional Past Drug Use History: None Reported - Past Family History Sister(s) Family Medical History: Cancer Additional Family Medical History / Comment(s): breast Brother(s) Family Medical History: Cancer Additional Family Medical History / Comment(s): throat cancer Mother Family Medical History: Cancer, Hypertension Additional Family Medical History / Comment(s): breast General Exam - General Exam Comments Initial Comments: GENERAL: No acute distress, well developed, well nourished. HEENT: Normocephalic, atraumatic. Pupils equal, round, reactive to light. Moist mucous membranes. Perispinal cervical spine muscle spasms. No point vertebral tenderness. LUNGS: No respiratory distress. Clear to auscultation, no adventitious sounds, no use of accessory muscles. HEART: Regular rate and rhythm without murmur, rub, or gallop. ABDOMEN: Normal bowel sounds. Soft, non-tender, non-distended. BACK: Normal inspection. EXTREMITIES: No edema. No tenderness. Moves all extremities. Equal bilateral motor strength upper and lower extremities. Sensation intact. NEUROLOGIC: Alert & oriented x 3. CN II-XII grossly intact. PSYCHIATRIC: Normal affect and behavior. DERMATOLOGIC: Skin intact, without rashes or lesions noted. Limitations: no limitations Course Vital Signs 06/14/22 06/14/22 06/14/22 07:10 07:37 08:55 Temperature 98.2 F Pulse Rate 65 61 50 L Respiratory 18 18 18 Rate Blood Pressure 153/95 137/95 149/99 O2 Sat by Pulse 100 100 97 Oximetry 06/14/22 10:14 Temperature 97.8 F Pulse Rate 49 L Respiratory 18 Rate Blood Pressure 128/92 O2 Sat by Pulse 99 Oximetry Medical Decision Making - Medical Decision Making Was pt. sent in by a medical professional or institution (, PA, SENIOR INSTRUMENTATION ENGINEER, urgent care, hospital, or correction...) When possible be specific @ -No Did you speak to anyone other than the patient for history (EMS, parent, family, police, friend...)? What history was obtained from this source @ -Yes spoke with spouse regarding further information regarding history of current illness, current medications and recent workup. Did you review nursing and triage notes (agree or disagree)? Why? @ -I reviewed and agree with nursing and triage notes Were old charts reviewed (outside hosp., previous admission, EMS record, old EKG, old radiological studies, urgent care reports/EKG's, correction records)? Report findings @ -Yes, I reviewed MRA report of the brain and neck completed May [address] of the brain report from September 2021. Differential Diagnosis (chest pain, altered mental status, abdominal pain women, abdominal pain men, vaginal bleeding, weakness, fever, dyspnea, syncope, headache, dizziness, GI bleed, back pain, seizure, CVA, palpatations, mental health, musculoskeletal)? @ -Differential Headache: Migraine, tension, cluster, carbon monoxide, central venous thrombosis, pension karma temporal arteritis, acute closure glaucoma, intercranial hemorrhage, mastoiditis, sinusitis, head injury, this is not meant to be an all-inclusive list. EKG interpreted by me (3pts min.). @ -None done X-rays interpreted by me (1pt min.). @ -None done CT interpreted by me (1pt min.). @ -CT brain and cervical spine: No acute intracranial process, no cervical spine fractures or subluxation. U/S interpreted by me (1pt. min.). @ -None done What testing was considered but not performed or refused? (CT, X-rays, U/S, labs)? Why? @ -None What meds were considered but not given or refused? Why? @ -None Did you discuss the management of the patient with other professionals (professionals i.e. , PA, SENIOR INSTRUMENTATION ENGINEER, lab, RT, psych nurse, hospice social worker, metal drill press operator, teacher, chief talent officer, dependency case manager)? Give summary @ -No Was smoking cessation discussed for >3mins.? @ -No Was critical care preformed (if so, how long)? @ -No Were there social determinants of health that impacted care today? How? (Home lessness, low income, unemployed, alcoholism, drug addiction, transportation, low edu. Level, literacy, decrease access to med. care, custodial, rehab)? @ -No Was there de-escalation of care discussed even if they declined (Discuss DNR or withdrawal of care, Hospice)? DNR status @ -No What co-morbidities impacted this encounter? (DM, HTN, Smoking, COPD, CAD, Cancer, CVA, ARF, Chemo, Hep., AIDS, mental health diagnosis, sleep apnea, morbid obesity)? @ -Headaches/migraine history Was patient admitted / discharged? Hospital course, mention meds given and route, prescriptions, significant lab abnormalities, going to OR and other pertinent info. @ -62-year-old -Tong[place] male presenting to the emergency room with complaints of headache ongoing intermittently for approximately one month with increase in intensity and duration recently. He is following with primary care provider and recently referred to neurologist regarding his symptoms. He is previous CT of the head and MRA. also reports he had spinal tap that was completed at [facility]. No concern for meningeal symptoms. Will give migraine cocktail of 1 L fluid bolus, Toradol, Benadryl and Reglan. Will obtain CT of the brain and cervical spine given increased frequency and inten sity of headaches since last CT of the brain. No indication for laboratory studies. Will monitor. Pain improved but persist after cocktail will give additional 1 L fluid bolus and morphine. CT of the brain without acute intracranial process or cervical fractures/subluxation. No indication for further diagnostic imaging or laboratory studies at this time. Pain improved after morphine a second liter fluid bolus. Patient inquiring regarding headache pain medication needs until able to follow-up with primary care provider/neurologist. Will give Tylenol 3 starter pack. And concerns answered. Return parameters to the emergency room discussed. Will discharge home in stable condition with Tylenol 3 starter pack to utilize for headaches advising follow-up with primary care provider and neurologist. Undiagnosed new problem with uncertain prognosis? @ -No Drug Therapy requiring intensive monitoring for toxicity (Heparin, Nitro, Insulin, Cardizem)? @ -No Were any procedures done? @ -No Diagnosis/symptom? @ -Migraine headache Acute, or Chronic, or Acute on Chronic? @ -Acute on chronic Uncomplicated (without systemic symptoms) or Complicated (systemic symptoms)? @ -Uncomplicated Side effects of treatment? @ -No Exacerbation, Progression, or Severe Exacerbation? @ -No Poses a threat to life or bodily function? How? (Chest pain, [place], MA, pneumonia, PE, COPD, DKA, ARF, appy, cholecystitis, CVA, Diverticulitis, Homicidal, Suicidal, threat to staff... and all critical care pts) @ -No Case discussed with Dr. Elkins. - Radiology Data Radiology results: report reviewed, image reviewed Disposition Clinical Impression: Migraine headache Disposition: HOME SELF-CARE Condition: Stable Instructions (If sedation given, give patient instructions): Migraine Headache (ED) Additional Instructions: Continue to take your migraine medication as prescribed. Please follow-up with your primary care provider and neurologist as recommended by her primary care provider. Utilize Tylenol 3 starter pack for breakthrough headache/neck pain as needed. Please return to the Emergency Department if symptoms worsen or any other concerns. Is patient prescribed a controlled substance at d/c from ED?: No Referrals: Latrice Jackson DO [Primary Care Provider] - 1-2 days Time of Disposition: 10:02
--- NOTE | 2022-06-14 08:41 | CT ---
EXAMINATION TYPE: CT brain cspine wo con CT DLP: mGycm, Automated exposure control for dose reduction was used. DATE OF EXAM: 06/14/2022 8:27 AM COMPARISON: MRA head 05/24/2022, CT brain from 09/11/2021. CLINICAL INDICATION:Male, 62 years old with history of head and neck pain; TECHNIQUE: Brain: Multiple axial CT images of the brain were obtained without IV contrast. Cspine: Axial CT images from the skull base to the inferior aspect of T2 we obtained without intraven ous contrast. Coronal and sagittal reformatted images were also reviewed. FINDINGS: Brain: Extra-axial spaces: No abnormal extra-axial fluid collections. Ventricular system: Within normal limits Cerebral parenchyma: No acute intraparenchymal hemorrhage or mass effect. The sanchez-white junction is well differentiated. Cerebellum: Unremarkable. Mass effect: No evidence of midline shift. Intracranial vasculature: unremarkable Soft tissues: Multiple dermal calcifications noted. Calvarium/osseous structures: No depressed skull fracture. Paranasal sinuses and mastoid air cells: Clear. Visualized orbits: Orbital contents are intact. Cervical spine: Fracture: None. Osseous structures: Multilevel facet arthropathy. Vertebral alignment: Minimal grade 1 anterolisthesis of C4 on C5. Spinal canal/Neural Foramina: No evidence of significant spinal canal narrowing. Facet joint uncovert ebral joint arthropathy scattered throughout the cervical spine with varying degrees of neural forami nal stenosis. Neck soft tissues: Prevertebral soft tissues are within normal limits. Other: The airway is patent. Mild centrilobular emphysematous changes. Atherosclerotic calcification of the bilateral carotid bulbs. IMPRESSION: 1. No acute intracranial process. 2. No evidence of cervical spine fracture. 3. Minimal multilevel degenerative disc disease.
[2022-06-14] MEDS ORDERED: MORPHINE SULFATE 4 MG/ML SYRINGE IVP STA (08:50)
[2022-06-14] MEDS ORDERED: ACET/COD 300 MG/30 MG STARTER PACK 6 TAB BTL PO STA (10:00)
[2022-06-14 10:15] VITALS: BP 128/92; PULSE 49; TEMP 97.8
== END 2022-06-14 10:15 | disposition home or self-care (01) ==
LOC: EC 07:08
DX: G43.909 Migraine, unspecified, not intractable, without status migrainosus (principal); F17.200 Nicotine dependence, unspecified, uncomplicated; Z88.8 Allergy status to other drugs, medicaments and biological substances
CPT/HCPCS: 72125; 70450; 99284; 96374; 96375 ×3; 96361 ×2; J2270; J1200; J2765; J1885

== ENCOUNTER → 2022-06-15 | Outpatient (CLI) | payer BC ==
--- NOTE | 2022-06-15 18:14 | MR ---
EXAMINATION TYPE: MR cervical spine wo con DATE OF EXAM: 06/15/2022 COMPARISON: None HISTORY: Pain, left arm radiculopathy, headaches CONTRAST: Performed utilizing 0 mL intravenous Gadavist gadolinium contrast. TECHNIQUE: Multiplanar multiecho imaging on a 3.0 Debbie magnet is performed through the cervical spin e. FINDINGS: The craniovertebral junction is normal. Vertebral body alignment is normal. Spinal cord maintains normal signal throughout its visualized course. Disc heights are preserved. Vertebral body heights are preserved. There is some disc desiccation C4-5 C5-6. Milder disc desiccation is present elsewhere. No spinal canal stenosis present. No focal disc herniation or significant disc bulge is evident. No c ord contact is evident. There is some mild disc bulge at C3-4 with mild intrathecal sac compression. No cord contact is evide nt. There is some uncovertebral joint hypertrophy and C4-5 foraminal narrowing present bilaterally. IMPRESSIONS: 1. Mild degenerative disc changes. Some mild disc bulging may be present C3-4 area 2. Mild foraminal narrowing C4-5 bilaterally
== END | disposition home or self-care (01) ==
LOC: RADMRIMAIN 13:05
PROVIDERS: ATTEND Family Medicine
DX: M50.121 Cervical disc disorder at C4-C5 level with radiculopathy (principal); M99.71 Connective tissue and disc stenosis of intervertebral foramina of cervical region
CPT/HCPCS: 72141

== ENCOUNTER 2022-09-19 19:40 | Emergency (ER) | payer BC ==
[2022-09-19 20:27] VITALS: TEMP 98.2
[2022-09-19 22:13] LABS: Basophils % (A) 0 %; Eosinophils # (A) 0.1 k/uL (0-0.7); Eosinophils % (A) 4 %; HCT 44.3 % (39.0-53.0); HGB 15.1 gm/dL (13.0-17.5); Lymphocytes # (A) 1.4 k/uL (1.0-4.8); Lymphocytes % (A) 36 %; MCH 33.8 pg (25.0-35.0); MCHC 34.1 g/dL (31.0-37.0); Mean Platelet Volume 8.2; Monocytes # (A) 0.2 k/uL (0-1.0); Monocytes % (A) 5 %; Neutrophils # (A) 1.9 k/uL (1.3-7.7); Neutrophils % (A) 52 %; Platelet Count 139 k/uL (150-450); RBC 4.47 m/uL (4.30-5.90); RDW 12.6 % (11.5-15.5); WBC 3.7 k/uL (3.8-10.6)
[2022-09-19 22:34] LABS: ALT 25 U/L (4-49); African American GFR (CKD) >90 (>60 ml/min/1.73 sqM); Albumin 4.6 g/dL (3.5-5.0); Amylase 95 U/L (30-110); Anion Gap 8 mmol/L; Blood Urea Nitrogen 18 mg/dL (9-20); Calcium 9.3 mg/dL (8.4-10.2); Carbon Dioxide 26 mmol/L (22-30); Chloride 104 mmol/L (98-107); Glucose 101 mg/dL (74-99); Lipase 131 U/L (23-300); Non-African American GFR(CKD) 85 (>60 ml/min/1.73 sqM); Sodium 138 mmol/L (137-145); Total Bilirubin 0.6 mg/dL (0.2-1.3); Total Protein 8.1 g/dL (6.3-8.2)
[2022-09-19 22:49] LABS: AST 34 U/L (17-59); Alkaline Phosphatase 63 U/L (38-126); Potassium 4.4 mmol/L (3.5-5.1)
[2022-09-19] MEDS ORDERED: SODIUM CHLORIDE 0.9% 500 ML 500 ML IV STA (23:12)
[2022-09-19] MEDS ORDERED: KETOROLAC 15 MG/ML 1 ML VIAL IVP STA (23:12)
[2022-09-20] MEDS ORDERED: MORPHINE SULFATE 4 MG/ML SYRINGE IV STA (00:54)
[2022-09-20 01:19] LABS: Appearance,Urine Clear (Clear); Bilirubin,Urine Negative (Negative); Blood,Urine Negative (Negative); Color,Urine Light Red; Glucose,Urine (UA) Negative (Negative); Hyaline Casts,Urine 1 /lpf (0-2); Ketones,Urine 1+ (Negative); Leukocyte Esterase,Urine Negative (Negative); Mucus,Urine Many /hpf; Nitrite,Urine Negative (Negative); PH, Urine 5.5 (5.0-8.0); Protein,Urine 1+ (Negative); RBC,Urine 2 /hpf (0-5); Specific Gravity,Urine 1.037 (1.001-1.035); Squamous Epithelial Cell,Urine 4 /hpf (0-4); Urobilinogen,Urine <2.0 mg/dL (<2.0); WBC,Urine 2 /hpf (0-5)
--- NOTE | 2022-09-20 02:28 | CT ---
EXAM: CT Abdomen and Pelvis Without Intravenous Contrast CLINICAL HISTORY: LLQ abd pain TECHNIQUE: Axial computed tomography images of the abdomen and pelvis without intravenous contrast. CTDI is 6.3 mGy and DLP is 354.2 mGy-cm. This CT exam was performed using one or more of the following dose reduction techniques: automated exposure control, adjustment of the mA and/or kV according to patient size, and/or use of iterative reconstruction technique. COMPARISON: No relevant prior studies available. FINDINGS: Lung bases: Unremarkable. No mass. No consolidation. ABDOMEN: Liver: Unremarkable. Gallbladder and bile ducts: Unremarkable. No calcified stones. No ductal dilation. Pancreas: Unremarkable. No ductal dilation. Spleen: Unremarkable. No splenomegaly. Adrenals: Unremarkable. No mass. Kidneys and ureters: The unenhanced kidneys demonstrate no evidence for nephrolithiasis or hydronephrosis. No definite ureteral stones. Stomach and bowel: Postsurgical changes noted at the gastroesophageal junction. No evidence for bowel obstruction. Evaluation of the bowel mucosa is slightly limited without contrast; however, no definite focal asymmetry suggested. No evidence for diverticulitis. PELVIS: Appendix: No findings to suggest acute appendicitis. Bladder: Mucosal thickening Involving the predominantly decompressed bladder is noted. No bladder stones. Reproductive: Unremarkable as visualized. ABDOMEN and PELVIS: Intraperitoneal space: Unremarkable. No free air. No significant fluid collection. Bones/joints: No acute fracture. No dislocation. Soft tissues: Unremarkable. Vasculature: Unremarkable. No abdominal aortic aneurysm. Lymph nodes: Unremarkable. No enlarged lymph nodes. IMPRESSION: 1. Postsurgical changes noted at the gastroesophageal junction. No evidence for bowel obstruction. Evaluation of the bowel mucosa is slightly limited without contrast; however, no definite focal asymmetry suggested. No evidence for diverticulitis. No free intraperitoneal fluid or pneumoperitoneum. 2. Mucosal thickening Involving the predominantly decompressed bladder is noted. No bladder stones. Suspect normal variation. Subtle cystitis is difficult to exclude. Please correlate clinically.
[2022-09-20] MEDS ORDERED: FAMOTIDINE 20 MG/2 ML VIAL IV STA (02:35)
[2022-09-20] MEDS ORDERED: MAG HYDROX/AL HYDROX/SIMETH 30 ML, HYOSCYAMINE ELIXIR 10 ML, LIDOCAINE 2% GLYDO JELLY 1... PO STA ×3 (02:35)
--- NOTE | 2022-09-20 02:36 | ED ---
Abdominal Pain HPI - General Chief Complaint: Abdominal Pain Stated Complaint: Abd Pain Time Seen by Provider: 09/19/22 22:52 Source: patient Mode of arrival: ambulatory Limitations: no limitations - History of Present Illness Initial Comments: This patient is 62-year-old man presenting to have evaluation of left sided abdominal pain. Patient states that this is going into its second day. He has had some occasional nausea. The patient states the pain is dull, he has not noted worsening or relieving factors. There has been no change in urination or bowel movements. No bloody or tarry stools. MD Complaint: abdominal pain Onset/Timin -: days(s) Location: LUQ, LLQ Radiation: none Migration to: no migration Severity: moderate Quality: aching Consistency: intermittent Improves With: nothing Worsens With: nothing Associated Symptoms: nausea - Related Data Home Medications Medication Instructions Recorded Confirmed Famotidine [Pepcid] 20 mg PO BID 10/11/19 05/27/22 Escitalopram [Lexapro] 5 mg PO DAILY 09/11/21 05/27/22 Tamsulosin [Flomax] 0.4 mg PO DAILY 09/11/21 05/27/22 Cyclobenzaprine [Flexeril] 10 mg PO BID 05/27/22 05/27/22 Previous Rx's Medication Instructions Recorded Famotidine [Pepcid] 20 mg PO BID #14 tablet 09/20/22 Allergies Allergy/AdvReac Type Severity Reaction Status Date / Time diazepam [From Valium] Allergy Rash/Hives Verified 09/19/22 20:24 Review of Systems ROS Statement: Those systems with pertinent positive or pertinent negative responses have been documented in the HPI. ROS Other: All systems not noted in ROS Statement are negative. Constitutional: Denies: fever, chills, weakness Respiratory: Denies: cough, dyspnea Cardiovascular: Denies: chest pain, palpitations, edema Gastrointestinal: Reports: abdominal pain, nausea. Denies: vomiting, diarrhea, constipation, melena, hematochezia Genitourinary: Denies: dysuria, hematuria, testicular pain Musculoskeletal: Denies: back pain Skin: Denies: rash Neurological: Denies: headache, weakness Past Medical History Past Medical History: GERD/Reflux Additional Past Medical History / Comment(s): change in bowel movements, recent colitis, BLOOD IN STOOL, enlarged prostate History of Any Multi-Drug Resistant Organisms: None Reported Past Surgical History: Bariatric Surgery, Hernia Repair, Orthopedic Surgery Additional Past Surgical History / Comment(s): HIATAL HERNIA REPAIR, RIGHT ROTATOR CUFF REPAIR, URETER SURGERY, LAP BAND- Past Anesthesia/Blood Transfusion Reactions: No Reported Reaction Past Psychological History: No Psychological Hx Reported Smoking Status: Current some day smoker Past Alcohol Use History: Occasional Past Drug Use History: None Reported - Past Family History Sister(s) Family Medical History: Cancer Additional Family Medical History / Comment(s): breast Brother(s) Family Medical History: Cancer Additional Family Medical History / Comment(s): throat cancer Mother Family Medical History: Cancer, Hypertension Additional Family Medical History / Comment(s): breast General Exam Limitations: no limitations General appearance: alert, in no apparent distress Head exam: Present: atraumatic, normocephalic Eye exam: Present: normal appearance. Absent: scleral icterus, conjunctival injection Neck exam: Present: normal inspection Respiratory exam: Present: normal lung sounds bilaterally. Absent: respiratory distress, wheezes, rales, rhonchi, stridor Cardiovascular Exam: Present: normal rhythm, bradycardia, normal heart sounds. Absent: systolic murmur, diastolic murmur, rubs, gallop GI/Abdominal exam: Present: soft, tenderness (There is mild left-sided abdominal tenderness without rebound or guarding). Absent: distended, guarding, rebound, rigid, mass, pulsatile mass, hernia Extremities exam: Present: normal inspection, normal capillary refill. Absent: pedal edema, calf tenderness Back exam: Present: normal inspection. Absent: CVA tenderness (R), CVA tenderness (L) Neurological exam: Present: alert Skin exam: Present: warm, dry, intact, normal color. Absent: rash Course Vital Signs 09/19/22 09/20/22 20:24 04:05 Temperature 98.2 F Pulse Rate 51 L 55 L Respiratory 18 16 Rate Blood Pressure 162/91 185/98 O2 Sat by Pulse 100 100 Oximetry Medical Decision Making - Medical Decision Making Patient had CT of the abdomen and pelvis which I interpreted as showing no acute bowel obstruction or free air. No diverticulitis Was pt. sent in by a medical professional or institution (, PA, FLIGHT TEACHER, urgent care, hospital, or usp...) When possible be specific @ -[No] Did you speak to anyone other than the patient for history (EMS, parent, family, police, friend...)? What history was obtained from this source @ -[No] Did you review nursing and triage notes (agree or disagree)? Why? @ -[I reviewed and agree with nursing and triage notes] Were old charts reviewed (outside hosp., previous admission, EMS record, old EKG, old radiological studies, urgent care reports/EKG's, usp records)? Report findings @ -[No old charts were reviewed] Differential Diagnosis (chest pain, altered mental status, abdominal pain women, abdominal pain men, vaginal bleeding, weakness, fever, dyspnea, syncope, headache, dizziness, GI bleed, back pain, seizure, CVA, palpatations, mental health, musculoskeletal)? @ -[Differential Abdominal Pain Men: Appendicitis, cholecystitis, diverticulosis, ischemic bowel, pancreatitis, hepatitis, UTI, gastroenteritis, AAA, incarcerated hernia, bowel obstruction, constipation, inflammatory bowel, hepatitis, peptic ulcer disease, splenic infarction, perforated viscus, testicular torsion, this is not meant to be an all-inclusive list EKG interpreted by me (3pts min.). @ -[ X-rays interpreted by me (1pt min.). @ -[None done] CT interpreted by me (1pt min.). @ -[As above, I interpreted U/S interpreted by me (1pt. min.). @ -[None done] What testing was considered but not performed or refused? (CT, X-rays, U/S, labs)? Why? @ -[None] What meds were considered but not given or refused? Why? @ -[None] Did you discuss the management of the patient with other professionals (professionals i.e. , PA, FLIGHT TEACHER, lab, RT, psych nurse, manager social responsibility, visual designer, t eacher, client sales and service officer, porter sample case)? Give summary @ -[No] Was smoking cessation discussed for >3mins.? @ -[No] Was critical care preformed (if so, how long)? @ -[No] Were there social determinants of health that impacted care today? How? (Homelessness, low income, unemployed, alcoholism, drug addiction, transportation, low edu. Level, literacy, decrease access to med. care, detention, r ehab)? @ -[No] Was there de-escalation of care discussed even if they declined (Discuss DNR or withdrawal of care, Hospice)? DNR status @ -[No] What co-morbidities impacted this encounter? (DM, HTN, Smoking, COPD, CAD, Cance r, CVA, ARF, Chemo, Hep., AIDS, mental health diagnosis, sleep apnea, morbid obesity)? @ -[None] Was patient admitted / discharged? Hospital course, mention meds given and route, prescriptions, significant lab abnormalities, going to OR and other pertinent info. @ -[Patient is 62-year-old man with abdominal pain. The workup including compu luiza tomography scan not revealing any surgical condition. The patient did feel better and would like to go home and follow-up. We discussed appropriate further care as well as return parameters. Undiagnosed new problem with uncertain prognosis? @ -[Abdominal pain Drug Therapy requiring intensive monitoring for toxicity (Heparin, Nitro, Insu alfonzo, Cardizem)? @ -[No] Were any procedures done? @ -[No] Diagnosis/symptom? @ -[Acute abdominal pain Acute, or Chronic, or Acute on Chronic? @ -[Acute Uncomplicated (without systemic symptoms) or Complicated (systemic symptoms)? @ -[Uncomplicated Side effects of treatment? @ -[No] Exacerbation, Progression, or Severe Exacerbation? @ -[No] Poses a threat to life or bodily function? How? (Chest pain, USA, [place], pneumonia, PE, COPD, DKA, ARF, appy, cholecystitis, CVA, Diverticulitis, Homicidal, Suicidal, threat to staff... and all critical care pts) @ -[No] - Lab Data Result diagrams: 09/19/22 21:50 09/19/22 21:50 Lab Results 09/19/22 09/19/22 09/19/22 Range/Units 21:50 21:50 23:20 WBC 3.7 L (3.8-10.6) k/uL RBC 4.47 (4.30-5.90) m/uL Hgb 15.1 (13.0-17.5) gm/dL Hct 44.3 (39.0-53.0) % MCV 99.0 (80.0-100.0) fL MCH 33.8 (25.0-35.0) pg MCHC 34.1 (31.0-37.0) g/dL RDW 12.6 (11.5-15.5) % Plt Count 139 L (150-450) k/uL MPV 8.2 Neutrophils % 52 % Lymphocytes % 36 % Monocytes % 5 % Eosinophils % 4 % Basophils % 0 % Neutrophils # 1.9 (1.3-7.7) k/uL Lymphocytes # 1.4 (1.0-4.8) k/uL Monocytes # 0.2 (0-1.0) k/uL Eosinophils # 0.1 (0-0.7) k/uL Basophils # 0.0 (0-0.2) k/uL Sodium 138 (137-145) mmol/L Potassium 4.4 (3.5-5.1) mmol/L Chloride 104 (98-107) mmol/L Carbon Dioxide 26 (22-30) mmol/L Anion Gap 8 mmol/L BUN 18 (9-20) mg/dL Creatinine 0.97 (0.66-1.25) mg/dL Est GFR (CKD-EPI)AfAm >90 (>60 ml/min/1.73 sqM) Est GFR (CKD-EPI)NonAf 85 (>60 ml/min/1.73 sqM) Glucose 101 H (74-99) mg/dL Calcium 9.3 (8.4-10.2) mg/dL Total Bilirubin 0.6 (0.2-1.3) mg/dL AST 34 (17-59) U/L ALT 25 (4-49) U/L Alkaline Phosphatase 63 (38-126) U/L C-Reactive Protein 3.4 H (<1.0) mg/dL Total Protein 8.1 (6.3-8.2) g/dL Albumin 4.6 (3.5-5.0) g/dL Amylase 95 (30-110) U/L Lipase 131 (23-300) U/L Urine Color Urine Appearance (Clear) Urine pH (5.0-8.0) Ur Specific [place] (1.001-1.035) Urine Protein (Negative) Urine Glucose (UA) (Negative) Urine Ketones (Negative) Urine Blood (Negative) Urine Nitrite (Negative) Urine Bilirubin (Negative) Urine Urobilinogen (<2.0) mg/dL Ur Leukocyte Esterase (Negative) Urine RBC (0-5) /hpf Urine WBC (0-5) /hpf Ur Squamous Epith Cells (0-4) /hpf Hyaline Casts (0-2) /lpf Urine Mucus (None) /hpf Coronavirus (PCR) (Not Detectd) 09/20/22 09/20/22 Range/Units 00:40 00:40 WBC (3.8-10.6) k/uL RBC (4.30-5.90) m/uL Hgb (13.0-17.5) gm/dL Hct (39.0-53.0) % MCV (80.0-100.0) fL MCH (25.0-35.0) pg MCHC (31.0-37.0) g/dL RDW (11.5-15.5) % Plt Count (150-450) k/uL MPV Neutrophils % % Lymphocytes % % Monocytes % % Eosinophils % % Basophils % % Neutrophils # (1.3-7.7) k/uL Lymphocytes # (1.0-4.8) k/uL Monocytes # (0-1.0) k/uL Eosinophils # (0-0.7) k/uL Basophils # (0-0.2) k/uL Sodium (137-145) mmol/L Potassium (3.5-5.1) mmol/L Chloride (98-107) mmol/L Carbon Dioxide (22-30) mmol/L Anion Gap mmol/L BUN (9-20) mg/dL Creatinine (0.66-1.25) mg/dL Est GFR (CKD-EPI)AfAm (>60 ml/min/1.73 sqM) Est GFR (CKD-EPI)NonAf (>60 ml/min/1.73 sqM) Glucose (74-99) mg/dL Calcium (8.4-10.2) mg/dL Total Bilirubin (0.2-1.3) mg/dL AST (17-59) U/L ALT (4-49) U/L Alkaline Phosphatase (38-126) U/L C-Reactive Protein (<1.0) mg/dL Total Protein (6.3-8.2) g/dL Albumin (3.5-5.0) g/dL Amylase (30-110) U/L Lipase (23-300) U/L Urine Color Light Red Urine Appearance Clear (Clear) Urine pH 5.5 (5.0-8.0) Ur Specific [place] 1.037 H (1.001-1.035) Urine Protein 1+ H (Negative) Urine Glucose (UA) Negative (Negative) Urine Ketones 1+ H (Negative) Urine Blood Negative (Negative) Urine Nitrite Negative (Negative) Urine Bilirubin Negative (Negative) Urine Urobilinogen <2.0 (<2.0) mg/dL Ur Leukocyte Esterase Negative (Negative) Urine RBC 2 (0-5) /hpf Urine WBC 2 (0-5) /hpf Ur Squamous Epith Cells 4 (0-4) /hpf Hyaline Casts 1 (0-2) /lpf Urine Mucus Many H (None) /hpf Coronavirus (PCR) Not Detected (Not Detectd) Disposition Clinical Impression: Abdominal pain Disposition: HOME SELF-CARE Condition: Good Instructions (If sedation given, give patient instructions): Abdominal Pain (ED) Prescriptions: Famotidine [Pepcid] 20 mg PO BID #14 tablet Is patient prescribed a controlled substance at d/c from ED?: No Referrals: Latrice Jackson DO [Primary Care Provider] - 1-2 days
[2022-09-20 04:06] VITALS: BP 185/98; PULSE 55; RESP 16
== END 2022-09-20 04:06 | disposition home or self-care (01) ==
LOC: EC 19:40
DX: R10.12 Left upper quadrant pain (principal); R10.32 Left lower quadrant pain; K21.9 Gastro-esophageal reflux disease without esophagitis; F17.200 Nicotine dependence, unspecified, uncomplicated; Z79.899 Other long term (current) drug therapy; Z20.822 Contact with and (suspected) exposure to COVID-19
CPT/HCPCS: 36415; 80053; 82150; 83690; 85025; 86140; 81001; 87635; 74176; 99284; 96374; 96375 ×2; 96361; J2270; J1885

== ENCOUNTER → 2022-09-29 | Outpatient (CLI) | payer BC ==
--- NOTE | 2022-09-29 11:03 | FL ---
EXAMINATION TYPE: FL UGI air w small bowel DATE OF EXAM: 09/29/2022 COMPARISON: CT abdomen pelvis 09/20/2022, barium swallow 10/31/2016 HISTORY: K21.9 Gerd, K31.84 history of prior lap band and hernia surgery. TECHNIQUE: A double contrast UGI study is performed with small bowel follow through. A total of 43 seconds of fluoroscopic time was utilized during procedure and 168 images obtained. Total dose area product (DAP) in uGy*m?, mGy*cm? (or similar): Unable to obtain due to how old the machine is. FINDINGS: Hockey Instructor image of the abdomen shows no gross abnormality. Tertiary contractions identified involving the esophagus with mild holdup of contrast at the GE junct ion. Postsurgical changes from hiatal hernia repair. No evidence for recurrent hiatal hernia. The stomach shows normal distensibility, peristalsis, and mucosal folds. No evidence of any mass or ulcer disease. No significant esophageal reflux was seen during real time performance of this study. The duodenal bulb and sweep are unremarkable. The small bowel study shows normal transit to the colon in less than 1 hour 5 minutes. There is norm al mucosal fold pattern throughout the small bowel. There is no evidence of any stricture or filling defect noted. The terminal ileum is unremarkable. IMPRESSION: 1. Tertiary contractions with mild holdup of contrast at the GE junction suggesting stricture at the GE junction. Consider further evaluation with direct visualization. 2. Normal small bowel follow-through.
== END | disposition home or self-care (01) ==
LOC: RADFLMAIN 08:06
PROVIDERS: ATTEND Family Medicine
DX: K21.9 Gastro-esophageal reflux disease without esophagitis (principal); K31.84 Gastroparesis; Z98.84 Bariatric surgery status
CPT/HCPCS: 74240; 74248

== ENCOUNTER 2022-11-19 08:12 | Emergency (ER) | payer BC ==
[2022-11-19 08:25] VITALS: TEMP 98.1
--- NOTE | 2022-11-19 08:38 | ED ---
Lower Extremity Injury HPI - General Chief Complaint: Extremity Injury, Lower Stated Complaint: left foot pain Time Seen by Provider: 11/19/22 08:22 Source: patient, RN notes reviewed Mode of arrival: ambulatory Limitations: no limitations - History of Present Illness Initial Comments: 62-year-old male presents emergency Department chief complaint left foot injury. 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 In states he got caught on a bin that was loaded. Patient states his foot bent backwards he states he ended up having to back the highlo and states that he has pain in his mid foot states he has pain with movement of his first digit. Patient denies any other associated symptoms. D enies paresthesias. - Related Data Home Medications Medication Instructions Recorded Confirmed Famotidine [Pepcid] 20 mg PO BID 10/11/19 05/27/22 Escitalopram [Lexapro] 5 mg PO DAILY 09/11/21 05/27/22 Tamsulosin [Flomax] 0.4 mg PO DAILY 09/11/21 05/27/22 Cyclobenzaprine [Flexeril] 10 mg PO BID 05/27/22 05/27/22 Previous Rx's Medication Instructions Recorded Famotidine [Pepcid] 20 mg PO BID #14 tablet 09/20/22 Ibuprofen [Motrin] 600 mg PO Q8HR PRN #20 tab 11/19/22 Allergies Allergy/AdvReac Type Severity Reaction Status Date / Time diazepam [From Valium] Allergy Rash/Hives Verified 11/19/22 08:17 Review of Systems ROS Statement: Those systems with pertinent positive or pertinent negative responses have been documented in the HPI. ROS Other: All systems not noted in ROS Statement are negative. Past Medical History Past Medical History: GERD/Reflux Additional Past Medical History / Comment(s): change in bowel movements, recent colitis, BLOOD IN STOOL, enlarged prostate History of Any Multi-Drug Resistant Organisms: None Reported Past Surgical History: Bariatric Surgery, Hernia Repair, Orthopedic Surgery Additional Past Surgical History / Comment(s): HIATAL HERNIA REPAIR, RIGHT ROTATOR CUFF REPAIR, URETER SURGERY, LAP BAND- Past Anesthesia/Blood Transfusion Reactions: No Reported Reaction Past Psychological History: No Psychological Hx Reported Smoking Status: Current some day smoker Past Alcohol Use History: Occasional Past Drug Use History: None Reported - Past Family History Sister(s) Family Medical History: Cancer Additional Family Medical History / Comment(s): breast Brother(s) Family Medical History: Cancer Additional Family Medical History / Comment(s): throat cancer Mother Family Medical History: Cancer, Hypertension Additional Family Medical History / Comment(s): breast General Exam Limitations: no limitations General appearance: alert, in no apparent distress Head exam: Present: atraumatic, normocephalic, normal inspection Eye exam: Present: normal appearance, PERRL, EOMI. Absent: scleral icterus, co njunctival injection, periorbital swelling Respiratory exam: Present: normal lung sounds bilaterally. Absent: respiratory distress, wheezes, rales, rhonchi, stridor Cardiovascular Exam: Present: regular rate, normal rhythm, normal heart sounds. Absent: systolic murmur, diastolic murmur, rubs, gallop, clicks Extremities exam: Present: other (Left foot there is swelling in the mid foot, there is tenderness palpation, neurovascular intact) Course Vital Signs 11/19/22 08:15 Temperature 98.1 F Pulse Rate 72 Respiratory 20 Rate Blood Pressure 149/87 O2 Sat by Pulse 99 Oximetry Medical Decision Making - Medical Decision Making Was pt. sent in by a medical professional or institution (, PA, TIPPING MACHINE OPERATOR, urgent care, hospital, or shelter...) When possible be specific @ -No Did you speak to anyone other than the patient for history (EMS, parent, family, police, friend...)? What history was obtained from this source @ -No Did you review nursing and triage notes (agree or disagree)? Why? @ -I reviewed and agree with nursing and triage notes Were old charts reviewed (outside hosp., previous admission, EMS record, old EKG, old radiological studies, urgent care reports/EKG's, shelter records)? Report findings @ -No old charts were reviewed Differential Diagnosis (chest pain, altered mental status, abdominal pain women, abdominal pain men, vaginal bleeding, weakness, fever, dyspnea, syncope, headache, dizziness, GI bleed, back pain, seizure, CVA, palpatations, mental health, musculoskeletal)? @ -Foot sprain, foot fracture EKG interpreted by me (3pts min.). @ -None X-rays interpreted by me (1pt min.). @ -X-ray left foot negative for acute fracture CT interpreted by me (1pt min.). @ -None done U/S interpreted by me (1pt. min.). @ -None done What testing was considered but not performed or refused? (CT, X-rays, U/S, labs)? Why? @ -None What meds were considered but not given or refused? Why? @ -None Did you discuss the management of the patient with other professionals (professionals i.e. DrCordell, PA, TIPPING MACHINE OPERATOR, lab, RT, psych nurse, social media editor, preparation room worker, teacher, quality officer, window caser)? Give summary @ -No Was smoking cessation discussed for >3mins.? @ -No Was critical care preformed (if so, how long)? @ -No Were there social determinants of health that impacted care today? How? (Homelessness, low income, unemployed, alcoholism, drug addiction, transportation, low edu. Level, literacy, decrease access to med. care, group home, rehab)? @ -No Was there de-escalation of care discussed even if they declined (Discuss DNR or withdrawal of care, Hospice)? DNR status @ -No What co-morbidities impacted this encounter? (DM, HTN, Smoking, COPD, CAD, Cancer, CVA, ARF, Chemo, Hep., AIDS, mental health diagnosis, sleep apnea, morbid obesity)? @ -None Was patient admitted / discharged? Hospital course, mention meds given and route, prescriptions, significant lab abnormalities, going to OR and other pertinent info. @ -Discharge patient has left foot sprain there is no acute fracture patient is discharged stable condition with close follow patient provided on-call orthopedics. Undiagnosed new problem with uncertain prognosis? @ -No Drug Therapy requiring intensive monitoring for toxicity (Heparin, Nitro, Insulin, Cardizem)? @ -No Were any procedures done? @ -No Diagnosis/symptom? @ -Left foot sprain Acute, or Chronic, or Acute on Chronic? @ -Acute Uncomplicated (without systemic symptoms) or Complicated (systemic symptoms)? @ -Uncomplicated Side effects of treatment? @ -No Exacerbation, Progression, or Severe Exacerbation? @ -No Poses a threat to life or bodily function? How? (Chest pain, [place], [place], pneumonia, PE, COPD, DKA, ARF, appy, cholecystitis, CVA, Diverticulitis, Homicidal, Suicidal, threat to staff... and all critical care pts) @ -No Disposition Clinical Impression: Sprain of left foot Disposition: HOME SELF-CARE Condition: Stable Instructions (If sedation given, give patient instructions): Foot Sprain (ED) Additional Instructions: Please return to the Emergency Department if symptoms worsen or any other concerns. Prescriptions: Ibuprofen [Motrin] 600 mg PO Q8HR PRN #20 tab PRN Reason: Pain Is patient prescribed a controlled substance at d/c from ED?: No Referrals: Latrice Jackson DO [Primary Care Provider] - 1-2 days Ronak Campbell DO [Doctor of Osteopathic Medicine] - 1-2 days Time of Disposition: 09:49
--- NOTE | 2022-11-19 09:31 | XR ---
EXAMINATION TYPE: XR foot complete LT DATE OF EXAM: 11/19/2022 CLINICAL HISTORY: pain TECHNIQUE: Frontal, lateral and oblique images of the left foot are obtained. COMPARISON: None. FINDINGS: There is no acute fracture/dislocation evident. The joint spaces appear within normal schwab its. The overlying soft tissue appears unremarkable. IMPRESSION: There is no acute fracture or dislocation. ICD 10 NO FRACTURE, INITIAL EVALUATION
[2022-11-19] MEDS ORDERED: IBUPROFEN 600 MG TAB PO STA (09:40)
[2022-11-19] MEDS ORDERED: ACET/COD 300 MG/30 MG STARTER PACK 6 TAB BTL PO STA (09:40)
[2022-11-19] MEDS ORDERED: HYDROcodone/APAP 5-325MG 1 EACH TAB PO STA (09:40)
[2022-11-19 09:59] VITALS: BP 144/89; PULSE 65; RESP 16
== END 2022-11-19 10:05 | disposition home or self-care (01) ==
LOC: EC 08:12
DX: S93.602A Unspecified sprain of left foot, initial encounter (principal); K21.9 Gastro-esophageal reflux disease without esophagitis; F17.200 Nicotine dependence, unspecified, uncomplicated; Z79.899 Other long term (current) drug therapy; Z88.8 Allergy status to other drugs, medicaments and biological substances; W23.0XXA Caught, crushed, jammed, or pinched between moving objects, initial encounter; Y99.0 Civilian activity done for income or pay
CPT/HCPCS: 99283

== ENCOUNTER 2024-02-21 20:01 | Emergency (ER) | payer BC ==
[2024-02-21 20:07] VITALS: RESP 18
--- NOTE | 2024-02-21 20:19 | ED ---
General Adult HPI - General Chief complaint: Headache Stated complaint: neck pain Time Seen by Provider: 02/21/24 20:08 Source: patient Mode of arrival: ambulatory Limitations: no limitations - History of Present Illness Initial comments: 63-year-old male presenting with chief complaint of headache. Patient has history of headaches. He is having tightness in his neck which then ascends up into his head and wraps around. He took his abortive medication at home which did not help the pain. Pain has been ongoing for the last 2 days. Denies any injury or trauma. This feels like pain he has had in the past. No nausea or vomiting, does admit to decreased appetite. No dizziness. No numbness tingling or weakness. No fever, chills, cough, congestion, sore throat. - Related Data Home Medications Medication Instructions Recorded Confirmed Famotidine [Pepcid] 20 mg PO BID 10/11/19 05/27/22 Escitalopram [Lexapro] 5 mg PO DAILY 09/11/21 05/27/22 Tamsulosin [Flomax] 0.4 mg PO DAILY 09/11/21 05/27/22 Cyclobenzaprine [Flexeril] 10 mg PO BID 05/27/22 05/27/22 Previous Rx's Medication Instructions Recorded Famotidine [Pepcid] 20 mg PO BID #14 tablet 09/20/22 Ibuprofen [Motrin] 600 mg PO Q8HR PRN #20 tab 11/19/22 Allergies Allergy/AdvReac Type Severity Reaction Status Date / Time diazepam [From Valium] Allergy Rash/Hives Verified 02/21/24 20:07 Review of Systems ROS Statement: Those systems with pertinent positive or pertinent negative responses have been documented in the HPI. ROS Other: All systems not noted in ROS Statement are negative. Past Medical History Past Medical History: GERD/Reflux Additional Past Medical History / Comment(s): change in bowel movements, recent colitis, BLOOD IN STOOL, enlarged prostate History of Any Multi-Drug Resistant Organisms: None Reported Past Surgical History: Bariatric Surgery, Hernia Repair, Orthopedic Surgery Additional Past Surgical History / Comment(s): HIATAL HERNIA REPAIR, RIGHT ROTATOR CUFF REPAIR, URETER SURGERY, LAP BAND- Past Anesthesia/Blood Transfusion Reactions: No Reported Reaction Past Psychological History: No Psychological Hx Reported Smoking Status: Current some day smoker Past Alcohol Use History: Occasional Past Drug Use History: None Reported - Past Family History Sister(s) Family Medical History: Cancer Additional Family Medical History / Comment(s): breast Brother(s) Family Medical History: Cancer Additional Family Medical History / Comment(s): throat cancer Mother Family Medical History: Cancer, Hypertension Additional Family Medical History / Comment(s): breast General Exam Limitations: no limitations General appearance: alert, in no apparent distress Head exam: Present: atraumatic, normocephalic, normal inspection Eye exam: Present: normal appearance, PERRL, EOMI. Absent: periorbital swelling Neck exam: Present: normal inspection. Absent: meningismus Respiratory exam: Absent: respiratory distress Neurological exam: Present: alert, oriented X3 Expanded Eye Response: (4) open spontaneously Motor Response: (6) obeys commands Verbal Response: (5) oriented Merary Total: 15 Psychiatric exam: Present: normal affect, normal mood Skin exam: Present: warm, dry, normal color Course Vital Signs 02/21/24 02/21/24 20:04 21:40 Temperature 97.7 F 97.8 F Pulse Rate 56 L 54 L Respiratory 18 18 Rate Blood Pressure 180/96 159/91 O2 Sat by Pulse 100 99 Oximetry Medical Decision Making - Medical Decision Making Was pt. sent in by a medical professional or institution (, PA, SYSTEMS COORDINATOR, urgent care, hospital, or long term...) When possible be specific @ -No Did you speak to anyone other than the patient for history (EMS, parent, family, police, friend...)? What history was obtained from this source @ - Did you review nursing and triage notes (agree or disagree)? Why? @ -I reviewed and agree with nursing and triage notes Were old charts reviewed (outside hosp., previous admission, EMS record, old EKG, old radiological studies, urgent care reports/EKG's, long term records)? Report findings @ -No old charts were reviewed Differential Diagnosis (chest pain, altered mental status, abdominal pain women, abdominal pain men, vaginal bleeding, weakness, fever, dyspnea, syncope, headache, dizziness, GI bleed, back pain, seizure, CVA, palpatations, mental health, musculoskeletal)? @ -MDM Differential Headache: Migraine, tension, cluster, carbon monoxide, central venous thrombosis, pension karma temporal arteritis, acute closure glaucoma, intercranial hemorrhage, mastoiditis, sinusitis, head injury this is not meant to be an all-inclusive list. EKG interpreted by me (3pts min.). @ -As above X-rays interpreted by me (1pt min.). @ -None done CT interpreted by me (1pt min.). @ -None done U/S interpreted by me (1pt. min.). @ -None done What testing was considered but not performed or refused? (CT, X-rays, U/S, labs)? Why? @ -None What meds were considered but not given or refused? Why? @ -None Did you discuss the management of the patient with other professionals (professionals i.e. , PA, SYSTEMS COORDINATOR, lab, RT, psych nurse, nursing home social worker, database marketing specialist, teacher, property portfolio officer, immigration case manager)? Give summary @ -No Was smoking cessation discussed for >3mins.? @ -No Was critical care preformed (if so, how long)? @ -No Were there social determinants of health that impacted care today? How? (Homelessness, low income, unemployed, alcoholism, drug addiction, transportation, low edu. Level, literacy, decrease access to med. care, fpc, rehab)? @ -No Was there de-escalation of care discussed even if they declined (Discuss DNR or withdrawal of care, Hospice)? DNR status @ -No What co-morbidities impacted this encounter? (DM, HTN, Smoking, COPD, CAD, Cancer, CVA, ARF, Chemo, Hep., AIDS, mental health diagnosis, sleep apnea, morbid obesity)? @ -None Was patient admitted / discharged? Hospital course, mention meds given and route, prescriptions, significant lab abnormalities, going to OR and other pertinent info. @ -63-year-old male presenting with chief complaint of headache. Feels like headaches that he has had in the past. History and physical examination are conducted. No focal neurological deficits, GCS is 15. Patient is given a migraine cocktail and on reassessment he reports significant improvement in his symptoms. He is ready for discharge home. Follow-up with PCP. Report back to ER with any new or worsening symptoms. Discussed return parameters and answered all questions. Patient conveyed verbal understanding and agreed to the plan. I discussed this case in detail with my attending Dr. Garcia Undiagnosed new problem with uncertain prognosis? @ -No Drug Therapy requiring intensive monitoring for toxicity (Heparin, Nitro, Insulin, Cardizem)? @ -No Were any procedures done? @ -No Diagnosis/symptom? @ -Tension headache Acute, or Chronic, or Acute on Chronic? @ -Acute Uncomplicated (without systemic symptoms) or Complicated (systemic symptoms)? @ -Uncomplicated Side effects of treatment? @ -No Exacerbation, Progression, or Severe Exacerbation? @ -No Poses a threat to life or bodily function? How? (Chest pain, [place], [place], pneumonia, PE, COPD, DKA, ARF, appy, cholecystitis, CVA, Diverticulitis, Homicidal, Suicidal, threat to staff... and all critical care pts) @ -Low likelihood Disposition Clinical Impression: Tension headache Disposition: HOME SELF-CARE Condition: Good Instructions (If sedation given, give patient instructions): Acute Headache (ED) Additional Instructions: Follow-up with PCP. Report back to ER with any new or worsening symptoms. Is patient prescribed a controlled substance at d/c from ED?: No Referrals: Latrice Jackson DO [Primary Care Provider] - 1-2 days Time of Disposition: 21:50
[2024-02-21] MEDS: SODIUM CHLORIDE 0.9% 1,000 ML IV ONE (20:40)
[2024-02-21] MEDS: KETOROLAC 15 MG/ML 1 ML VIAL IVP STA (21:11)
[2024-02-21] MEDS: DEXAMETHASONE SOD PHOSPHATE 10 MG/ML 1 ML VIAL IVP STA (21:11)
[2024-02-21] MEDS: diphenhydrAMINE 50 MG/ML 1 ML VIAL IVP STA (21:12)
[2024-02-21] MEDS: ORPHENADRINE 30 MG/ML 2 ML VIAL IVP STA (21:12)
[2024-02-21] MEDS: METOCLOPRAMIDE 5 MG/ML 2 ML VIAL IVP STA (21:12)
[2024-02-21 21:42] VITALS: BP 159/91; PULSE 54; TEMP 97.8
== END 2024-02-21 22:10 | disposition home or self-care (01) ==
LOC: EC 20:01
DX: G44.209 Tension-type headache, unspecified, not intractable (principal); F17.200 Nicotine dependence, unspecified, uncomplicated; Z88.8 Allergy status to other drugs, medicaments and biological substances
CPT/HCPCS: 99284; 96374; 96375; 96361; J1200; J1100; J2360; J2765; J1885

== ENCOUNTER 2024-08-19 13:28 | Emergency (ER) | payer BC ==
--- NOTE | 2024-08-19 14:05 | ED ---
Headache HPI - General Source: patient, family, RN notes reviewed Mode of arrival: ambulatory Limitations: no limitations <Xochitl Jacques - Last Filed: 08/19/24 14:06> <Lesley Hendricks - Last Filed: 08/19/24 23:37> - General Chief Complaint: Headache Stated Complaint: Dizziness,Headache Time Seen by Provider: 08/19/24 14:05 - History of Present Illness Initial Comments: Quick note: 64-year-old male presented to ER for evaluation of headache. Patient reports a history of headaches. He states around 10 AM he started to experience a headache for which he took his abortive medication. He states he is also having a decreased appetite, lightheaded and dizziness. Patient denies chest pain (Xochitl Jacques) 64-year-old male with history of cervical spinal stenosis and chronic migraines presenting to the ER with complaints of headache and decrease in appetite that started at approximately 1030 this morning and worsened to noon. He states that he has pain in the posterior back of his head with mild pain in his neck that feels similar as when he has had headaches secondary to neck pain in the past. admits to mild dizziness with the headache as well. He denies recent falls or injuries. He endorses associated photophobia. Denies visual disturbances, lightheadedness, fevers, chills, nausea, vomiting, chest pain or difficulty breathing. States that he took his abortive medication which did not alleviate symptoms. Patient believes that he may need another injection in his neck to help with the chronic pain that he experiences. (Lesley Hendricks) - Related Data Home Medications Medication Instructions Recorded Confirmed Famotidine [Pepcid] 20 mg PO BID 10/11/19 05/27/22 Escitalopram [Lexapro] 5 mg PO DAILY 09/11/21 05/27/22 Tamsulosin [Flomax] 0.4 mg PO DAILY 09/11/21 05/27/22 Cyclobenzaprine [Flexeril] 10 mg PO BID 05/27/22 05/27/22 Previous Rx's Medication Instructions Recorded Famotidine [Pepcid] 20 mg PO BID #14 tablet 09/20/22 Ibuprofen [Motrin] 600 mg PO Q8HR PRN #20 tab 11/19/22 Allergies Allergy/AdvReac Type Severity Reaction Status Date / Time diazepam [From Valium] Allergy Rash/Hives Verified 08/19/24 13:38 Review of Systems ROS Other: All systems not noted in ROS Statement are negative. <Xochitl Jacques - Last Filed: 08/19/24 14:06> ROS Other: All systems not noted in ROS Statement are negative. <Lesley Hendricks - Last Filed: 08/19/24 23:37> ROS Statement: Those systems with pertinent positive or pertinent negative responses have been documented in the HPI. Past Medical History Past Medical History: GERD/Reflux Additional Past Medical History / Comment(s): change in bowel movements, recent colitis, BLOOD IN STOOL, enlarged prostate History of Any Multi-Drug Resistant Organisms: None Reported Past Surgical History: Bariatric Surgery, Hernia Repair, Orthopedic Surgery Additional Past Surgical History / Comment(s): HIATAL HERNIA REPAIR, RIGHT ROTATOR CUFF REPAIR, URETER SURGERY, LAP BAND- Past Anesthesia/Blood Transfusion Reactions: No Reported Reaction Past Psychological History: No Psychological Hx Reported Smoking Status: Current some day smoker Past Alcohol Use History: Occasional Past Drug Use History: None Reported - Past Family History Sister(s) Family Medical History: Cancer Additional Family Medical History / Comment(s): breast Brother(s) Family Medical History: Cancer Additional Family Medical History / Comment(s): throat cancer Mother Family Medical History: Cancer, Hypertension Additional Family Medical History / Comment(s): breast <Xochitl Jacques - Last Filed: 08/19/24 14:06> General Exam Limitations: no limitations <Xochitl Jacques - Last Filed: 08/19/24 14:06> Respiratory exam: Present: normal lung sounds bilaterally. Absent: respiratory distress, wheezes, rales, rhonchi, stridor Cardiovascular Exam: Present: regular rate, normal rhythm, normal heart sounds. Absent: systolic murmur, diastolic murmur, rubs, gallop, clicks GI/Abdominal exam: Present: soft, normal bowel sounds. Absent: distended, tenderness, guarding, rebound, rigid Extremities exam: Present: normal inspection, full ROM, normal capillary refill. Absent: tenderness, pedal edema, joint swelling, calf tenderness Back exam: Present: normal inspection Neurological exam: Present: alert, oriented X3, CN II-XII intact <Lesley Hendricks - Last Filed: 08/19/24 23:37> - General Exam Comments Initial Comments: Visual Physical Exam Vital signs reviewed General: Well-appearing, nontoxic, no acute distress. Head: Normocephalic, atraumatic Eyes: PERRLA, EOMI ENT: Airway patent Chest: Nonlabored breathing Skin: No visual rash, normal skin tone Neuro: Alert and oriented 3 Musculoskeletal: No gross abnormalities (Xochitl Jacques) Course Vital Signs 08/19/24 08/19/24 08/19/24 13:35 16:12 17:17 Temperature 97.7 F 98 F Pulse Rate 53 L 50 L 59 L Respiratory 18 18 17 Rate Blood Pressure 153/94 161/100 143/100 O2 Sat by Pulse 100 100 99 Oximetry Medical Decision Making <Xochitl Jacques - Last Filed: 08/19/24 14:06> - Lab Data Result diagrams: 08/19/24 15:20 08/19/24 15:20 <Lesley Hendricks - Last Filed: 08/19/24 23:37> - Medical Decision Making I performed the quick note portion of this chart. Electronically signed by Xochitl Jacques PA-C (Xochitl Jacques) Was pt. sent in by a medical professional or institution (MAMADOU Deleon, CAPITAL EQUIPMENT SPECIALIST, urgent care, hospital, or snf...) When possible be specific @ -No Did you speak to anyone other than the patient for history (EMS, parent, family, police, friend...)? What history was obtained from this source @ -No Did you review nursing and triage notes (agree or disagree)? Why? @ -I reviewed and agree with nursing and triage notes Were old charts reviewed (outside hosp., previous admission, EMS record, old EKG, old radiological studies, urgent care reports/EKG's, snf records)? Report findings @ -No old charts were reviewed Differential Diagnosis (chest pain, altered mental status, abdominal pain women, abdominal pain men, vaginal bleeding, weakness, fever, dyspnea, syncope, headache, dizziness, GI bleed, back pain, seizure, CVA, palpatations, mental health, musculoskeletal)? @ -Differential Headache: Migraine, tension, cluster, carbon monoxide, central venous thrombosis, pension karma temporal arteritis, acute closure glaucoma, intercranial hemorrhage, mastoiditis, sinusitis, head injury, this is not meant to be an all-inclusive list. EKG interpreted by me (3pts min.). @ -None X-rays interpreted by me (1pt min.). @ -None done CT interpreted by me (1pt min.). @ -None done U/S interpreted by me (1pt. min.). @ -None done What testing was considered but not performed or refused? (CT, X-rays, U/S, labs)? Why? @ -None What meds were considered but not given or refused? Why? @ -None Did you discuss the management of the patient with other professionals (professionals i.e. , PA, CAPITAL EQUIPMENT SPECIALIST, lab, RT, psych nurse, social media analyst, pie maker, teacher, chief information officer, case monitor)? Give summary @ -No Was smoking cessation discussed for >3mins.? @ -No Was critical care preformed (if so, how long)? @ -No Were there social determinants of health that impacted care today? How? (Homelessness, low income, unemployed, alcoholism, drug addiction, transportation, low edu. Level, literacy, decrease access to med. care, senior living, rehab)? @ -No Was there de-escalation of care discussed even if they declined (Discuss DNR or withdrawal of care, Hospice)? DNR status @ -No What co-morbidities impacted this encounter? (DM, HTN, Smoking, COPD, CAD, Cancer, CVA, ARF, Chemo, Hep., AIDS, mental health diagnosis, sleep apnea, morbid obesity)? @ -None Was patient admitted / discharged? Hospital course, mention meds given and route, prescriptions, significant lab abnormalities, going to OR and other pertinent info. @ -Discharge. 64-year-old male presents to the ER with complaints of headache. Neurological examination is unremarkable. Patient provided with migraine cocktail including fluids, Reglan, Toradol, Decadron and Tylenol. Labs including CBC and CMP unremarkable. On reevaluation patient states that he is feeling well. He is stable for discharge. Case discussed with my attending Dr. Elkins. Undiagnosed new problem with uncertain prognosis? @ -No Drug Therapy requiring intensive monitoring for toxicity (Heparin, Nitro, Insulin, Cardizem)? @ -No Were any procedures done? @ -No Diagnosis/symptom? @ -Migraine headache, chronic neck pain Acute, or Chronic, or Acute on Chronic? @ -Acute on chronic, acute Uncomplicated (without systemic symptoms) or Complicated (systemic symptoms)? @ -uncomplicated Side effects of treatment? @ -No Exacerbation, Progression, or Severe Exacerbation? @ -No Poses a threat to life or bodily function? How? (Chest pain, [place], [place], pneumonia, PE, COPD, DKA, ARF, appy, cholecystitis, CVA, Diverticulitis, Homicidal, Suicidal, threat to staff... and all critical care pts) @ -No (Lesley Hendricks) - Lab Data Lab Results 08/19/24 08/19/24 Range/Units 15:20 15:20 WBC 4.28 L (4.50-10.00) 10*3/uL RBC 4.09 L (4.40-5.60) 10*6/uL Hgb 13.8 (13.0-17.0) g/dL Hct 39.5 L (39.6-50.0) % MCV 96.6 (80.0-97.0) fL MCH 33.7 H (27.0-32.0) pg MCHC 34.9 (32.0-37.0) g/dL Plt Count 163 (140-440) 10*3/uL MPV 10.3 (9.5-12.2) fL Immature Gran % (Auto) 0 % Neutrophils % 52.8 % Lymphocytes % 36.2 % Monocytes % 5.6 % Eosinophils % 4.7 % Basophils % 0.7 % Immature Gran # 0.00 (0.00-0.04) 10*3/uL Neutrophils # 2.26 (1.80-7.70) 10*3/uL Lymphocytes # 1.55 (0.90-5.00) 10*3/uL Monocytes # 0.24 (0.20-1.00) 10*3/uL Eosinophils # 0.20 (0.04-0.35) 10*3/uL Basophils # 0.03 (0.00-0.10) 10*3/uL Sodium 142 (137-145) mmol/L Potassium 4.4 (3.5-5.1) mmol/L Chloride 105 (98-107) mmol/L Carbon Dioxide 25 (22-30) mmol/L Anion Gap 12 mmol/L BUN 19 (9-20) mg/dL Creatinine 0.80 (0.66-1.25) mg/dL Est GFR (CKD-EPI)AfAm >90 (>60 ml/min/1.73 sqM) Est GFR (CKD-EPI)NonAf >90 (>60 ml/min/1.73 sqM) Glucose 104 H (74-99) mg/dL Calcium 10.1 (8.4-10.2) mg/dL Total Bilirubin 0.6 (0.2-1.3) mg/dL AST 26 (17-59) U/L ALT 21 (4-49) U/L Alkaline Phosphatase 80 (38-126) U/L Total Protein 8.0 (6.3-8.2) g/dL Albumin 4.8 (3.5-5.0) g/dL Disposition <Xochitl Jacques - Last Filed: 08/19/24 14:06> Is patient prescribed a controlled substance at d/c from ED?: No Time of Disposition: 16:50 <Lesley Hendricks - Last Filed: 08/19/24 23:37> Clinical Impression: Chronic migraine, Chronic neck pain Disposition: HOME SELF-CARE Condition: Stable Instructions (If sedation given, give patient instructions): Cluster Headache (ED) Additional Instructions: Please return to the Emergency Department if symptoms worsen or any other concerns. Referrals: Wilber Jackson MD [STAFF PHYSICIAN] - 1-2 days
[2024-08-19 15:40] LABS: Basophils # (A) 0.03 10*3/uL (0.00-0.10); Basophils % (A) 0.7 %; Eosinophils # (A) 0.20 10*3/uL (0.04-0.35); Eosinophils % (A) 4.7 %; HCT 39.5 % (39.6-50.0); HGB 13.8 g/dL (13.0-17.0); Lymphocytes # (A) 1.55 10*3/uL (0.90-5.00); Lymphocytes % (A) 36.2 %; MCH 33.7 pg (27.0-32.0); MCHC 34.9 g/dL (32.0-37.0); MCV 96.6 fL (80.0-97.0); Monocytes # (A) 0.24 10*3/uL (0.20-1.00); Monocytes % (A) 5.6 %; Neutrophils # (A) 2.26 10*3/uL (1.80-7.70); Neutrophils % (A) 52.8 %; Platelet Count 163 10*3/uL (140-440); RBC 4.09 10*6/uL (4.40-5.60); RDW 12.5 % (11.5-14.5); WBC 4.28 10*3/uL (4.50-10.00)
[2024-08-19] MEDS: KETOROLAC 15 MG/ML 1 ML VIAL IVP STA (16:04)
[2024-08-19 16:05] LABS: ALT 21 U/L (4-49); AST 26 U/L (17-59); African American GFR (CKD) >90 (>60 ml/min/1.73 sqM); Albumin 4.8 g/dL (3.5-5.0); Alkaline Phosphatase 80 U/L (38-126); Anion Gap 12 mmol/L; Blood Urea Nitrogen 19 mg/dL (9-20); Calcium 10.1 mg/dL (8.4-10.2); Carbon Dioxide 25 mmol/L (22-30); Chloride 105 mmol/L (98-107); Glucose 104 mg/dL (74-99); Non-African American GFR(CKD) >90 (>60 ml/min/1.73 sqM); Potassium 4.4 mmol/L (3.5-5.1); Sodium 142 mmol/L (137-145); Total Protein 8.0 g/dL (6.3-8.2)
[2024-08-19] MEDS: DEXAMETHASONE SOD PHOSPHATE 10 MG/ML 1 ML VIAL IVP STA (16:06)
[2024-08-19] MEDS: METOCLOPRAMIDE 5 MG/ML 2 ML VIAL IVP STA (16:09)
[2024-08-19] MEDS: SODIUM CHLORIDE 0.9% 1,000 ML IV STA (16:11)
[2024-08-19] MEDS: ACETAMINOPHEN IV (For NPO) 1,000 MG in EMPTY BAG 1 BAG IVPB ONE (16:27)
[2024-08-19] MEDS: ACET/COD 300 MG/30 MG STARTER PACK TAB BTL PO STA (17:17)
[2024-08-19 17:23] VITALS: BP 143/100; PULSE 59; RESP 17; TEMP 98
== END 2024-08-19 17:23 | disposition home or self-care (01) ==
LOC: EC 13:28
DX: G89.29 Other chronic pain (principal); G43.909 Migraine, unspecified, not intractable, without status migrainosus; M54.2 Cervicalgia; F17.200 Nicotine dependence, unspecified, uncomplicated; Z88.8 Allergy status to other drugs, medicaments and biological substances
CPT/HCPCS: 36415; 93005; 80053; 85025; 99284; 96374; 96375; 96361; J1100; J2765; J0131; J1885